=== PATIENT | male | born 1955 | race Caucasian/White ===

== ENCOUNTER 2017-08-02 18:19 | Emergency (ER) | payer MEDICARE ==
[~2017-08-02] VITALS: Ht 182.9 cm; Wt 79.4 kg
[~2017-08-02 18:19] MED LIST: BENZ1TAB5 PO; BUPR100T6 PO; DIAZ10TA4 PO; ESCITALOPRAM OX20 MG PO; LISI1TAB7 PO; LORA0.5T96 PO; LOVA20TA2 PO; MELO7.5T5 PO; NATE120T2 PO; PRAM0.255 PO; PRIM50TA24 PO; Potassium Chloride PO; RISP3TAB PO; RISP4TAB2 PO; [UNRECOGNIZED DRUG - OTHER]; [UNRECOGNIZED DRUG - OTHER]
--- NOTE | 2017-08-02 19:14 | EKG ---
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
[2017-08-02 19:18] LABS: BASO # 0.1 x10^3/uL (0.0-0.2); BASO % 1 % (0-3); EOS # 0.1 x10^3/uL (0.0-0.7); EOS % 1 % (0-3); HEMATOCRIT 42.5 % (39.0-53.0); HEMOGLOBIN 15.2 g/dL (13.0-17.5); LYMPH # 1.8 x10^3/uL (1.0-4.8); LYMPH % 23 % (24-48); MEAN CORPUSCULAR HEMOGLOBIN 34 pg (25-35); MEAN CORPUSCULAR HGB CONC 36 g/dL (31-37); MEAN CORPUSCULAR VOLUME 95 fL (79-100); MONO # 0.4 x10^3/uL (0.0-1.1); MONO % 5 % (0-9); NEUT # 5.5 x10^3uL (1.8-7.7); NEUT % 71 % (31-73); PLATELET COUNT 181 x10^3/uL (140-400); RED BLOOD COUNT 4.49 x10^6/uL (4.30-5.70); RED CELL DISTRIBUTION WIDTH 12.9 % (11.5-14.5); WHITE BLOOD COUNT 7.8 x10^3/uL (4.0-11.0)
[2017-08-02 19:31] LABS: ALBUMIN 4.2 g/dL (3.4-5.0); ALBUMIN/GLOBULIN RATIO 1.1 (1.0-1.7); CALCIUM 10.1 mg/dL (8.5-10.1); CREATININE 1.3 mg/dL (0.7-1.3); GFR 55.9; TOTAL BILIRUBIN 0.4 mg/dL (0.2-1.0)
[2017-08-02 19:57] LABS: AMPHETAMINE/METHAMPHETAMINE NEG (NEG); BARBITURATES NEG (NEG); BENZODIAZEPINES NEG (NEG); CANNABINOIDS NEG (NEG); COCAINE NEG (NEG); METHADONE NEG (NEG); OPIATES NEG (NEG); PHENCYCLIDINE NEG (NEG)
[2017-08-02 19:58] VITALS: BP 140/93
--- NOTE | 2017-08-03 05:39 | ED.ADGEN ---
Past History Past Medical History: Bipolar, Diabetes, GERD, Hypertension, Schizophrenia Past Surgical History: Other Alcohol Use: Occasionally Additional Alcohol Information: DRANK A 5TH/DAY UP TO LAST YEAR Drug Use: None Adult General Chief Complaint Chief Complaint hallucinations, delusions HPI HPI Patient is a 62-year-old male with history of bipolar, alcoholism who presents with hallucinations and delusions prior to ED arrival. states he is feeling paranoid and thought report TM. Reports verbal confrontation with family member at [facility]. States delusions or hallucinations of currently resolved. No HI, SI symptoms currently. Denies drugs and alcohol. Compliant with medications [] Review of Systems Review of Systems ROS as per HPI [] Allergies Allergies Allergies Coded Allergies Type Severity Reaction Last Updated Verified No Known Drug Allergies 05/09/14 No Physical Exam Physical Exam Constitutional: Well developed, well nourished, no acute distress, non-toxic appearance. [] HENT: Normocephalic, atraumatic, bilateral external ears normal, oropharynx moist, no oral exudates, nose normal. [] Eyes: PERRLA, EOMI, conjunctiva normal, no discharge. [] Neck: Normal range of motion, no tenderness, supple, no stridor. [] Cardiovascular:Heart rate regular rhythm, no murmur [] Lungs & Thorax: Bilateral breath sounds clear to auscultation [] Abdomen: Bowel sounds normal, soft, no tenderness, no masses, no pulsatile masses. [] Skin: Warm, dry, no erythema, no rash. [] Back: No tenderness, no CVA tenderness. [] Extremities: No tenderness, no cyanosis, no clubbing, ROM intact, no edema. [] Neurologic: Alert and oriented X 3, no HI, SI. No current hallucinations or delusions [] Psychologic: Affect normal, judgement normal, mood normal. [] Current Patient Data Vital Signs Vital Signs Date Time Temp Pulse Resp B/P (MAP) Pulse Ox O2 Delivery O2 Flow Rate FiO2 08/02/17 19:58 97 140/93 (109) 08/02/17 19:28 94 08/02/17 18:19 98.2 08/02/17 18:19 18 Room Air Lab Results Laboratory Tests Test 08/02/17 18:55 08/02/17 19:23 White Blood Count 7.8 x10^3/uL (4.0-11.0) Red Blood Count 4.49 x10^6/uL (4.30-5.70) Hemoglobin 15.2 g/dL (13.0-17.5) Hematocrit 42.5 % (39.0-53.0) Mean Corpuscular Volume 95 fL (79-100) Mean Corpuscular Hemoglobin 34 pg (25-35) Mean Corpuscular Hemoglobin Concent 36 g/dL (31-37) Red Cell Distribution Width 12.9 % (11.5-14.5) Platelet Count 181 x10^3/uL (140-400) Neutrophils (%) (Auto) 71 % (31-73) Lymphocytes (%) (Auto) 23 % (24-48) L Monocytes (%) (Auto) 5 % (0-9) Eosinophils (%) (Auto) 1 % (0-3) Basophils (%) (Auto) 1 % (0-3) Neutrophils # (Auto) 5.5 x10^3uL (1.8-7.7) Lymphocytes # (Auto) 1.8 x10^3/uL (1.0-4.8) Monocytes # (Auto) 0.4 x10^3/uL (0.0-1.1) Eosinophils # (Auto) 0.1 x10^3/uL (0.0-0.7) Basophils # (Auto) 0.1 x10^3/uL (0.0-0.2) Sodium Level 139 mmol/L (136-145) Potassium Level 4.0 mmol/L (3.5-5.1) Chloride Level 104 mmol/L (98-107) Carbon Dioxide Level 25 mmol/L (21-32) Anion Gap 10 (6-14) Blood Urea Nitrogen 14 mg/dL (8-26) Creatinine 1.3 mg/dL (0.7-1.3) Estimated GFR (Cockcroft-Gault) 55.9 BUN/Creatinine Ratio 11 (6-20) Glucose Level 98 mg/dL (70-99) Calcium Level 10.1 mg/dL (8.5-10.1) Total Bilirubin 0.4 mg/dL (0.2-1.0) Aspartate Amino Transferase (AST) 18 U/L (15-37) Alanine Aminotransferase (ALT) 19 U/L (16-63) Alkaline Phosphatase 85 U/L (46-116) Total Protein 8.0 g/dL (6.4-8.2) Albumin 4.2 g/dL (3.4-5.0) Albumin/Globulin Ratio 1.1 (1.0-1.7) Ethyl Alcohol Level < 10 mg/dL (0-10) Urine Opiates Screen Neg (NEG) Urine Methadone Screen Neg (NEG) Urine Barbiturates Neg (NEG) Urine Phencyclidine Screen Neg (NEG) Urine Amphetamine/Methamphetamine Neg (NEG) Urine Benzodiazepines Screen Neg (NEG) Urine Cocaine Screen Neg (NEG) Urine Cannabinoids Screen Neg (NEG) Urine Ethyl Alcohol Neg (NEG) EKG EKG [EKG: reviewed] Radiology/Procedures Radiology/Procedures [] Course & Med Decision Making Course & Med Decision Making Pertinent Labs and Imaging studies reviewed. (See chart for details) [ follow-up with [facility]] Final Impression Final Impression [1. Medical screening exam] Problems: Dragon Disclaimer Dragon Disclaimer This electronic medical record was generated, in whole or in part, using a voice recognition dictation system. HERBERT WILSON DO Aug 03, 2017 05:39
== END 2017-08-02 22:10 | disposition home or self-care (01) ==
LOC: ER 18:19
DX: Z00.00 Encounter for general adult medical examination without abnormal findings (principal); I10 Essential (primary) hypertension; K21.9 Gastro-esophageal reflux disease without esophagitis; F20.9 Schizophrenia, unspecified; E11.9 Type 2 diabetes mellitus without complications; F32.9 Major depressive disorder, single episode, unspecified
CPT/HCPCS: 36415; 80053; 80307; 85025; 93005; 99285; G0480; G0479

== ENCOUNTER 2017-08-16 06:29 | Inpatient (IN) | payer MEDICARE ==
[~2017-08-16] VITALS: Ht 182.9 cm; Wt 84.1 kg
--- NOTE | 2017-08-16 06:32 | ED.ADGEN ---
Past History Past Medical History: Bipolar, Diabetes, GERD, Hypertension, Schizophrenia Past Surgical History: Other Alcohol Use: Occasionally Drug Use: None Adult General Chief Complaint Chief Complaint Stroke symptoms [facility] HPI Patient is a 62 year old male who presents with stroke like symptoms. He states he woke up at 4 AM and around 5:30 AM had numbness in his whole right side of his body, tightness in his right side of his neck and slurring of his speech. He denies any headache with these symptoms. He states these lasted 25 minutes and resolved except for the tightness in the right side of his neck. He states now he has this tingling sensation throughout his entire body. He denies fevers chills nausea or vomiting. He did drink 8 beers yesterday. He states he drinks twice a month. He also states he smokes cigarettes daily. He states he's compliant with his schizophrenia meds however he has ran out of his blood pressure medicines about a week ago. He states he's had 2 previous "mini strokes ". He also states his heart been skipping beats. He states he's been on aspirin daily and sometimes takes up to 3 aspirins a day based on his heart skipping beats. He also states he's had bright red blood in his stools for the last 6 months. He denies any lightheadedness or dizziness. He also complains of urinary hesitancy and "dribbling" when he tries to urinate this been going on for several months in addition. Review of Systems Review of Systems Constitutional: Denies fever or chills [] Eyes: Denies change in visual acuity, redness, or eye pain [] HENT: Denies nasal congestion or sore throat [] Respiratory: Denies cough or shortness of breath [] Cardiovascular: No additional information not addressed in HPI [] GI: Denies abdominal pain, nausea, vomiting, bloody stools or diarrhea [] : Denies dysuria or hematuria [] Musculoskeletal: Denies back pain or joint pain [] Integument: Denies rash or skin lesions [] Neurologic: Denies headache, focal weakness or sensory changes [] Endocrine: Denies polyuria or polydipsia [] Current Medications Current Medications Current Medications Medications (Trade) Dose Ordered Sig/Jameson Start Time Stop Time Status Last Admin Dose Admin Aspirin (Aspirin Enteric Coated) 325 mg 1X ONCE 08/16/17 07:30 08/16/17 07:32 DC 08/16/17 08:08 325 MG Ondansetron HCl (Zofran) 4 mg PRN Q4HRS PRN 08/16/17 09:30 08/17/17 09:29 UNV Allergies Allergies Allergies Coded Allergies Type Severity Reaction Last Updated Verified No Known Drug Allergies 05/09/14 No Physical Exam Physical Exam Constitutional: Well developed, well nourished, no acute distress, non-toxic appearance. [] HENT: Normocephalic, atraumatic, bilateral external ears normal, oropharynx moist, no oral exudates, nose normal. [] Eyes: PERRLA, EOMI, conjunctiva normal, no discharge. [] Neck: Normal range of motion, no tenderness, supple, no stridor. [] Cardiovascular:Heart rate regular rhythm, no murmur [] Lungs & Thorax: Bilateral breath sounds clear to auscultation [] Abdomen: Bowel sounds normal, soft, no tenderness, no masses, no pulsatile masses. [] Skin: Warm, dry, no erythema, no rash. [] Back: No tenderness, no CVA tenderness. [] Extremities: No tenderness, no cyanosis, no clubbing, ROM intact, no edema. [] Neurologic: Alert and oriented X 3, normal motor function, normal sensory function, no focal deficits noted. [] Psychologic: Affect normal, judgement normal, mood normal. [] Current Patient Data Vital Signs Vital Signs Date Time Temp Pulse Resp B/P (MAP) Pulse Ox O2 Delivery O2 Flow Rate FiO2 08/16/17 08:09 100 20 106/67 (80) 95 Room Air 08/16/17 06:29 98.2 Lab Results Laboratory Tests Test 08/16/17 06:45 08/16/17 07:14 White Blood Count 5.6 x10^3/uL (4.0-11.0) Red Blood Count 4.22 x10^6/uL (4.30-5.70) L Hemoglobin 14.2 g/dL (13.0-17.5) Hematocrit 39.9 % (39.0-53.0) Mean Corpuscular Volume 95 fL (79-100) Mean Corpuscular Hemoglobin 34 pg (25-35) Mean Corpuscular Hemoglobin Concent 36 g/dL (31-37) Red Cell Distribution Width 13.1 % (11.5-14.5) Platelet Count 150 x10^3/uL (140-400) Neutrophils (%) (Auto) 55 % (31-73) Lymphocytes (%) (Auto) 34 % (24-48) Monocytes (%) (Auto) 8 % (0-9) Eosinophils (%) (Auto) 3 % (0-3) Basophils (%) (Auto) 1 % (0-3) Neutrophils # (Auto) 3.1 x10^3uL (1.8-7.7) Lymphocytes # (Auto) 1.9 x10^3/uL (1.0-4.8) Monocytes # (Auto) 0.4 x10^3/uL (0.0-1.1) Eosinophils # (Auto) 0.2 x10^3/uL (0.0-0.7) Basophils # (Auto) 0.0 x10^3/uL (0.0-0.2) Prothrombin Time 9.8 SEC (9.4-11.4) Prothrombin Time INR 1.0 (0.9-1.1) PTT 24 SEC (23-33) Sodium Level 141 mmol/L (136-145) Potassium Level 3.7 mmol/L (3.5-5.1) Chloride Level 104 mmol/L (98-107) Carbon Dioxide Level 26 mmol/L (21-32) Anion Gap 11 (6-14) Blood Urea Nitrogen 10 mg/dL (8-26) Creatinine 1.1 mg/dL (0.7-1.3) Estimated GFR (Cockcroft-Gault) 67.8 BUN/Creatinine Ratio 9 (6-20) Glucose Level 98 mg/dL (70-99) Calcium Level 9.3 mg/dL (8.5-10.1) Total Bilirubin 0.4 mg/dL (0.2-1.0) Aspartate Amino Transferase (AST) 12 U/L (15-37) L Alanine Aminotransferase (ALT) 18 U/L (16-63) Alkaline Phosphatase 74 U/L (46-116) Creatine Kinase 122 U/L (39-308) Creatine Kinase MB (Mass) < 0.5 ng/mL (0.0-3.6) Creatine Kinase MB Relative Index 0.4 % (0-4) Troponin I Quantitative < 0.017 ng/mL (0-0.055) Total Protein 7.3 g/dL (6.4-8.2) Albumin 3.9 g/dL (3.4-5.0) Albumin/Globulin Ratio 1.1 (1.0-1.7) Salicylates Level 4.9 mg/dL (2.8-20.0) Salicylate Last Dose Date 08/16/2017 Salicylate Last Dose Time 0645 Ethyl Alcohol Level < 10 mg/dL (0-10) Urine Collection Type Unknown Urine Color Yellow Urine Clarity Clear Urine pH 7.0 Urine Specific [place] 1.015 Urine Protein Neg (NEG-TRACE) Urine Glucose (UA) Neg mg/dL (NEG) Urine Ketones (Stick) Neg mg/dL (NEG) Urine Blood Neg (NEG) Urine Nitrite Neg (NEG) Urine Bilirubin Neg (NEG) Urine Urobilinogen Dipstick 0.2 mg/dL (0.2 mg/dL) Urine Leukocyte Esterase Neg (NEG) Urine RBC 0 /HPF (0-2) Urine WBC 0 /HPF (0-4) Urine Squamous Epithelial Cells None /LPF Urine Bacteria 0 /HPF (0-FEW) Urine Opiates Screen Neg (NEG) Urine Methadone Screen Neg (NEG) Urine Barbiturates Neg (NEG) Urine Phencyclidine Screen Neg (NEG) Urine Amphetamine/Methamphetamine Neg (NEG) Urine Benzodiazepines Screen Neg (NEG) Urine Cocaine Screen Neg (NEG) Urine Cannabinoids Screen Neg (NEG) Urine Ethyl Alcohol Neg (NEG) EKG EKG EKG shows sinus rhythm with rate of [address] elevations or concerning T-wave inversions, normal axis, QTC 467 ms, as interpreted by me. Radiology/Procedures Radiology/Procedures [address] [address] IMAGING REPORT Signed PATIENT: AYO ALBERTO ACCOUNT: [id number] : 1955 LOCATION: ER AGE: 62 SEX: M EXAM STATUS: REG ER ORD. PHYSICIAN: YONATAN WADE MD REASON: slurred speech - resolved PROCEDURE: CT HEAD WO CONTRAST EXAM: CT head without contrast. HISTORY: Slurred speech. TECHNIQUE: Computed tomography of the head was performed without intravenous contrast. COMPARISON: 04/22/2016. FINDINGS: There is no intracranial hemorrhage. Mild hypoattenuation within the periventricular white matter indicates mild chronic small vessel ischemic change. The ventricles are normal in size and position. The visualized paranasal sinuses appear clear. The orbits are unremarkable. The temporal bones are unremarkable. The calvarium reveals no suspicious lesions. IMPRESSION: 1. No acute intracranial findings. Mild chronic small vessel ischemic white matter change. *One or more of the following individualized dose reduction techniques were utilized for this examination: 1. Automated exposure control. 2. Adjustment of the mA and/or kV according to patient size. 3. Use of iterative reconstruction technique. DICTATED AND SIGNED BY: CORINA LOYOLA MD DATE: 08/16/17733 CC: ADDISON CAMPA MD; YONATAN WADE MD ~ [place] [address] IMAGING REPORT Signed PATIENT: AYO ALBERTO ACCOUNT: [id number] : 1955 LOCATION: ER AGE: 62 SEX: M EXAM STATUS: REG ER ORD. PHYSICIAN: YONATAN WADE MD REASON: palpatations PROCEDURE: CHEST AP ONLY EXAM: Chest one view. HISTORY: Chest pain and palpitations, stroke symptoms. COMPARISON: None. FINDINGS: A frontal view of the chest is obtained. There is mild rotation to the left. Hyperinflation is consistent with chronic obstructive pulmonary disease. There is a mild airspace opacity in the left base which may be from superimposition of shadows. There is no pneumothorax or pleural effusion. The heart is not enlarged. IMPRESSION: 1. Chronic obstructive pulmonary disease. 2. An opacity in the left base may represent a mild infiltrate or superimposed shadows. Correlate with older studies to assess chronicity. DICTATED AND SIGNED BY: CORINA LOYOLA MD DATE: 08/16/17736 CC: ADDISON CAMPA MD; YONATAN WADE MD ~ Course & Med Decision Making Course & Med Decision Making Pertinent Labs and Imaging studies reviewed. (See chart for details) 720 patient states all his symptoms have resolved and he feels back to his baseline. He does have a history of TIAs in the past and takes daily aspirin. His alcohol level is less than 10 in addition to his aspirin level was non- toxic received a full dose aspirin. I tried to get a hold of Dr. Brown by calling his cell phone several times in addition to his office of which they cannot get a hold of him. Therefore after waiting approximately an hour we've admitted the patient to Dr. Thorpe. Hematocrit once a fasting lipid profile, carotid Dopplers, echocardiogram and neurology consultation. These have been added to his interim orders. Patient's in stable condition this time being admitted to the hospitalist. Final Impression Final Impression Dysarthria-resolved Hypertension Schizoaffective disorder Problems: Dragon Disclaimer Dragon Disclaimer This electronic medical record was generated, in whole or in part, using a voice recognition dictation system. Departure Departure: Impression: Primary Impression: TIA (transient ischemic attack) Disposition: ADMITTED INPATIENT Admitting Physician: Cathy Thorpe Condition: STABLE YONATAN WADE MD Aug 16, 2017 06:32
[2017-08-16 07:08] LABS: BASO % 1 % (0-3); EOS # 0.2 x10^3/uL (0.0-0.7); EOS % 3 % (0-3); HEMATOCRIT 39.9 % (39.0-53.0); HEMOGLOBIN 14.2 g/dL (13.0-17.5); LYMPH # 1.9 x10^3/uL (1.0-4.8); LYMPH % 34 % (24-48); MEAN CORPUSCULAR HEMOGLOBIN 34 pg (25-35); MEAN CORPUSCULAR HGB CONC 36 g/dL (31-37); MEAN CORPUSCULAR VOLUME 95 fL (79-100); MONO # 0.4 x10^3/uL (0.0-1.1); MONO % 8 % (0-9); NEUT # 3.1 x10^3uL (1.8-7.7); NEUT % 55 % (31-73); PLATELET COUNT 150 x10^3/uL (140-400); RED BLOOD COUNT 4.22 x10^6/uL (4.30-5.70); RED CELL DISTRIBUTION WIDTH 13.1 % (11.5-14.5); WHITE BLOOD COUNT 5.6 x10^3/uL (4.0-11.0)
[2017-08-16 07:20] LABS: ETHANOL < 10 mg/dL (0-10); SALIC 4.9 mg/dL (2.8-20.0)
[2017-08-16 07:23] LABS: ALBUMIN 3.9 g/dL (3.4-5.0); ALBUMIN/GLOBULIN RATIO 1.1 (1.0-1.7); CALCIUM 9.3 mg/dL (8.5-10.1); CREATININE 1.1 mg/dL (0.7-1.3); GFR 67.8; POTASSIUM 3.7 mmol/L (3.5-5.1); TOTAL BILIRUBIN 0.4 mg/dL (0.2-1.0); TOTAL PROTEIN 7.3 g/dL (6.4-8.2)
[2017-08-16] MEDS ORDERED: ASPIRIN ENTERIC COATED 325 MG TABLET.DR. PO ONE (07:30)
[2017-08-16 07:31] LABS: CREATINE KINASE 122 U/L (39-308)
[2017-08-16 07:34] LABS: BARBITURATES NEG (NEG); BENZODIAZEPINES NEG (NEG); CANNABINOIDS NEG (NEG); COCAINE NEG (NEG); METHADONE NEG (NEG); OPIATES NEG (NEG); PHENCYCLIDINE NEG (NEG)
[2017-08-16 07:35] LABS: AMPHETAMINE/METHAMPHETAMINE NEG (NEG)
--- NOTE | 2017-08-16 07:39 | RAD ---
EXAM: CT head without contrast. HISTORY: Slurred speech. TECHNIQUE: Computed tomography of the head was performed without intravenous contrast. COMPARISON: 04/22/2016. FINDINGS: There is no intracranial hemorrhage. Mild hypoattenuation within the periventricular white matter indicates mild chronic small vessel ischemic change. The ventricles are normal in size and position. The visualized paranasal sinuses appear clear. The orbits are unremarkable. The temporal bones are unremarkable. The calvarium reveals no suspicious lesions. IMPRESSION: 1. No acute intracranial findings. Mild chronic small vessel ischemic white matter change. *One or more of the following individualized dose reduction techniques were utilized for this examination: 1. Automated exposure control. 2. Adjustment of the mA and/or kV according to patient size. 3. Use of iterative reconstruction technique.
--- NOTE | 2017-08-16 07:42 | RAD ---
EXAM: Chest one view. HISTORY: Chest pain and palpitations, stroke symptoms. COMPARISON: None. FINDINGS: A frontal view of the chest is obtained. There is mild rotation to the left. Hyperinflation is consistent with chronic obstructive pulmonary disease. There is a mild airspace opacity in the left base which may be from superimposition of shadows. There is no pneumothorax or pleural effusion. The heart is not enlarged. IMPRESSION: 1. Chronic obstructive pulmonary disease. 2. An opacity in the left base may represent a mild infiltrate or superimposed shadows. Correlate with older studies to assess chronicity.
[2017-08-16 07:48] LABS: BILIRUBIN,URINE NEG (NEG); CLARITY,URINE CLEAR; COLOR,URINE YELLOW; GLUCOSE,URINE NEG (NEG)
[2017-08-16 07:49] LABS: BACTERIA,URINE 0 /HPF (0-FEW); NITRITE,URINE NEG (NEG); RBC,URINE 0 /HPF (0-2); UROBILINOGEN,URINE 0.2 mg/dL (0.2 mg/dL); WBC,URINE 0 /HPF (0-4)
[2017-08-16] MEDS ORDERED: ONDANSETRON PF 4 MG/2 ML VIAL. IV PRN (09:30)
[2017-08-16] MEDS ORDERED: ACETAMINOPHEN 500 MG TABLET PO ONE (10:30)
--- NOTE | 2017-08-16 10:40 | RAD ---
Exam performed: Carotid Doppler. Clinical indication: Transient ischemic attacks Comparison: None available Technique: Grayscale, color Doppler 2-D, spectral waveform analysis of the carotid system was performed and images are all obtained. Findings: There is mild to moderate atherosclerotic calcification within both carotid bulbs extending into the internal carotid artery bilaterally. Doppler interrogation reveals velocities as follows . Peak systolic velocity within the right common carotid artery ranges from 91 cm/sec whereas on the left ranges from 117 cm/sec . The peak systolic velocity within the right ICA ranges from 127 to164 cm/sec whereas on the left ranges from 98-115 cm/sec. The end-diastolic velocity in the right internal carotid artery is between 55-66. The end-diastolic velocity in the left internal carotid artery is between 40-47. The ICA to CCA ratio on the right ranges from 1.8whereas on the left ranges from 1.0. There is antegrade flow in both vertebral arteries. Impression: 1.Mild to moderate plaquing involving both carotid systems, with 50-69% stenosis on the right and about 50% stenosis on the left. Note: Stenosis calculations for CT, MR and conventional angiography are based upon determination of the distal ICA diameter in accordance with the NASCET methodology. Stenosis calculations for doppler studies are derived from validated velocity criteria which are known to correlate with NASCET methodology of determining stenosis.
[2017-08-16 11:14] VITALS: BP 157/83
[2017-08-16] MEDS ORDERED: QUET400T4 PO (11:28)
[2017-08-16] MEDS ORDERED: QUET50TA5 PO (11:28)
[2017-08-16] MEDS ORDERED: ASPI325T8 PO (12:58)
--- NOTE | 2017-08-16 13:53 | HP ---
ADMIT DATE: 08/16/2017 HISTORY OF PRESENT ILLNESS: The patient is a 62-year-old male patient who came to the Emergency Room. He apparently woke up at 4 a.m. and around 5:30 a.m., he had numbness in his whole right side of his body, tightness in his right side of his neck and slurring of his speech. He denied any headache with the symptoms. He stated that these symptoms lasted about 25 minutes and resolved except that tightness in his right side of his neck. He also has tingling sensation throughout his right side. Denied any fever, chills, nausea, vomiting. Did drink 8 beers yesterday. He stated he thinks he drinks 6 packs of beer twice a month. He stated that he has also retrosternal chest pain that lasted about half an hour associated with nausea, diaphoresis, and shortness of breath, but no vomiting. He took a regular aspirin and the pain has subsided spontaneously. He was evaluated in the Emergency Room, was admitted for further evaluation and to consult Dr. Sumner and Cardiology team. PAST MEDICAL HISTORY: According to him is significant for hypertension, hyperlipidemia, type 2 diabetes mellitus, depression, TIA. He apparently was admitted to [facility] for 2 previous episodes of TIAs. He also complained of symptoms suggestive of benign prostatic hypertrophy. He also said that he continued to have some blood in his stool over the last 6 months. He stated that he has had a colonoscopy done about 2-3 years ago and it was unremarkable. He has also esophagogastroduodenoscopy done about 5 years ago that was unremarkable. PAST SURGICAL HISTORY: Significant for EGD and colonoscopy. He has also right fibular fracture treated with casting. ALLERGIES: He is allergic to ____. MEDICATIONS: He is currently on escitalopram oxalate 20 mg at bedtime. He is on quetiapine fumarate 600 mg at bedtime and quetiapine fumarate 50 mg twice a day. He stated that he is also on medication for his diabetes, hypertension, hyperlipidemia that had stopped taking them and that he gets them from [facility]. FAMILY HISTORY: He has 1 older brother that apparently healthy, one younger sister has hypertension. His father at the age of 87 because of prostate cancer. Mother is alive at the age of 55. She is known to have hypertension and right-sided hemiplegia, aphasia. He lives with his sister. SOCIAL HISTORY: He is single, has no children, continue to smoke a pack a day and drinks only 6 pack twice a month. Does not use any drugs. He is now on disability for mental illness for depression and schizophrenia. REVIEW OF SYSTEMS: The patient denied any blurring of vision, cataract, glaucoma, or macular degeneration. Denied any earache, tinnitus, or sensorineural deafness. Denied any nosebleeds, stuffy nose, or postnasal drip. Denied any sore throat, sore tongue, toothache, hoarseness of voice, or difficulty swallowing. Denied any nausea, vomiting. Did complain of nausea, but no vomiting. Did complain of constipation, but no diarrhea. He did complain of poor stream and postvoid dribbling and also nocturia. Denied any dysuria, frequency, or hematuria. Did complain of chest pain and shortness of breath. Denied any orthopnea or paroxysmal nocturnal dyspnea. Denied any cough, phlegm, or hemoptysis. Denied any chills, rigors, or fever. Denied any dizziness, lightheadedness, or vertigo. PHYSICAL EXAMINATION: GENERAL: On arrival to the Emergency Room, he looked somewhat pale, but no jaundice, cyanosis, or thyromegaly. No jugular venous distention. No limb edema. VITAL SIGNS: His heart rate was 99, blood pressure was 141/91, temperature was 98.2, respiratory rate was 18, and oxygen saturation was 98% on room air. HEAD, EYES, EARS, NOSE, AND THROAT: Normocephalic, atraumatic. NECK: Supple. HEART: Showed normal first and second heart sounds with no gallop, rub, or murmur. CHEST: Clear to auscultation. No crepitation or rhonchi. ABDOMEN: Distended, soft, nontender. NEUROLOGIC: He is awake, alert, responding appropriately. All his cranial nerves are intact. EXTREMITIES: He moves extremities without difficulty. He definitely has no evidence of cerebellar ataxia. There is no dysdiadochokinesis, [id number] test was normal. I did not check his Romberg's test. LABORATORY DATA: While in the Emergency Room, he has lab work done, which showed a white cell count 5,600, hemoglobin 14, hematocrit 40, MCV 95, and platelet count ____ with normal manual differential. His chemistry showed a serum sodium of 141, potassium 3.7, chloride 104, bicarbonate 26, anion gap of 11, BUN 10, creatinine 1.1, estimated GFR was 68 mL per minute. His glucose was 98, calcium was 9.3. Total bilirubin, AST, ALT, alkaline phosphatase were normal. His first set of cardiac enzymes showed troponin to be less than 0.017. Total protein was 7.3, albumin was 3.9. His prothrombin time was 9.8, INR of 1, aPTT was 24. Urinalysis was essentially unremarkable. Urine toxic screen was essentially negative. The patient has had a CT scan of the head, which basically showed that there is no intracranial hemorrhage, mild hypoattenuation within the periventricular white matter indicates mild chronic small vessel ischemic changes. The ventricles are normal in size and position. The visualized paranasal sinuses appear clear. The orbits are unremarkable. The temporal bones are unremarkable. The calvarium reveals no suspicious lesions. He has had a chest x-ray, which showed that he has chronic obstructive pulmonary disease and opacity in the left base may represent a mild infiltrate or superimposed shadowing. He has had bilateral carotid Doppler, which showed that he has mild to moderate plaquing involving both carotid systems with 50%-60% stenosis on the right and about 50% stenosis in the left. PLAN: We have arranged for him to have an echocardiogram. We will consult Dr. Sumner and also the Cardiology team. We will contact [facility] to get list of medication and arrange for him to have 2 more sets of cardiac enzyme and fasting lipid profile tomorrow, Dr. Barnes will take over care tomorrow. ODALIS ORELLANA MD DR: MCKENZIE/gale JOB#: [id number] / [id number]
[2017-08-16] MEDS: QUEtiapine 50 MG TABLET. PO SCH (14:37)
[2017-08-16] MEDS: NICOTINE 21MG PATCH. TD SCH (14:38)
[2017-08-16 14:40] VITALS: BP 131/94
--- NOTE | 2017-08-16 16:44 | PDOC2 ---
MELI CAMP WARDROBE ATTENDANT 08/16/17 1644: CONSULT Date of Admission DATE: 08/16/17 TIME: 16:36 Reason for Consult: chest pain Problem List Problems Medical Problems: (1) TIA (transient ischemic attack) Status: Acute History of Present Illness Mr Beasley is a 62 year old male who presented with stroke like symptoms. He complains of right sided weakness lasting about 25 minutes. He also complained of midsternal pressure with associated dyspnea and diaphoresis. He reports this occurs off and on, mostly at rest and is associated with palpitations. He reports a stress test at last year after which he was recommended to have a cardiac cath. He says he wanted to go through his PCP so declined the cath at that time. Past Medical History hypertension, hyperlipidemia, type 2 diabetes mellitus, depression, 2 prior TIAs. benign prostatic hypertrophy right fibular fracture Past Surgical History EGD and colonoscopy Family History sister has hypertension, father with prostate cancer. Mother has hypertension, right-sided hemiplegia, aphasia. Social History 1 ppd smoker, drinks 6 pack twice monthly, denies illicit drugs and is on disability for depression and schizophrenia. Current Medications Current Medications Aspirin (Aspirin Enteric Coated) 325 mg 1X ONCE PO Last administered on 08:08; Start 08/16/17 at 07:30; Stop 08/16/17 at 07:32; Status DC Ondansetron HCl (Zofran) 4 mg PRN Q4HRS PRN IV NAUSEA/VOMITING; Start 08/16/17 at 09:30; Stop 08/17/17 at 09:29 Acetaminophen (Tylenol) 1,000 mg 1X ONCE PO Last administered on 08/16/17 10: 30; Start 08/16/17 at 10:30; Stop 08/16/17 at 10:31; Status DC Quetiapine Fumarate (SEROquel) 50 mg BID92 PO Last administered on 08/16/17 14 :37; Start 08/16/17 at 14:00 Citalopram Hydrobromide (CeleXA) 40 mg QHS PO ; Start 08/16/17 at 21:00 Quetiapine Fumarate (SEROquel) 600 mg QHS PO ; Start 08/16/17 at 21:00 Nicotine (Nicoderm Cq 21mg) 1 patch DAILY TD Last administered on 9/25/17at 14: 38; Start 08/16/17 at 13:00 Influenza Virus Vaccine Quadrival (Fluarix Quad [id number] Syringe) 0.5 ml ONCE ONCE VAX IM ; Start 08/16/17 at 21:00; Stop 08/16/17 at 21:01 Pneumococcal Polyvalent Vaccine (Pneumovax 23) 0.5 ml ONCE ONCE VAX IM ; Start 08/16/17 at 21:00; Stop 08/16/17 at 21:01 Aspirin (Markos Aspirin) 325 mg DAILYWBKFT PO ; Start 08/17/17 at 08:00 Enoxaparin Sodium (Lovenox) 40 mg HS SQ ; Start 08/16/17 at 21:00 Active Scripts Active Reported Aspirin 325 Mg Tablet 1 Tab PO BID PRN Seroquel (Quetiapine Fumarate) 50 Mg Tablet 50 Mg PO BID92 Seroquel (Quetiapine Fumarate) 400 Mg Tablet 600 Mg PO HS Escitalopram Oxalate 20 Mg Tablet 20 Mg PO HS Allergies: Coded Allergies: No Known Drug Allergies (Unverified , 05/09/14) Review of System as per HPI General: Alert, Oriented X3, Cooperative, No acute distress HEENT: Atraumatic, EOMI, Mucous membr. moist/pink Heart: Regular rate, Normal S1, Normal S2, No murmurs Abdomen: Normal bowel sounds, Soft, No tenderness Extremities: No cyanosis, Normal pulses Neuro: Normal speech, Strength at 5/5 X4 ext Psych/Mental Status: Mood NL VITALS Vital Signs Date Time Temp Pulse Resp B/P (MAP) Pulse Ox O2 Delivery O2 Flow Rate FiO2 08/16/17 14:40 97.5 87 20 131/94 (106) 95 Room Air Labs Laboratory Tests Test 08/16/17 06:45 08/16/17 07:14 08/16/17 14:20 White Blood Count 5.6 x10^3/uL (4.0-11.0) Red Blood Count 4.22 x10^6/uL (4.30-5.70) Hemoglobin 14.2 g/dL (13.0-17.5) Hematocrit 39.9 % (39.0-53.0) Mean Corpuscular Volume 95 fL (79-100) Mean Corpuscular Hemoglobin 34 pg (25-35) Mean Corpuscular Hemoglobin Concent 36 g/dL (31-37) Red Cell Distribution Width 13.1 % (11.5-14.5) Platelet Count 150 x10^3/uL (140-400) Neutrophils (%) (Auto) 55 % (31-73) Lymphocytes (%) (Auto) 34 % (24-48) Monocytes (%) (Auto) 8 % (0-9) Eosinophils (%) (Auto) 3 % (0-3) Basophils (%) (Auto) 1 % (0-3) Neutrophils # (Auto) 3.1 x10^3uL (1.8-7.7) Lymphocytes # (Auto) 1.9 x10^3/uL (1.0-4.8) Monocytes # (Auto) 0.4 x10^3/uL (0.0-1.1) Eosinophils # (Auto) 0.2 x10^3/uL (0.0-0.7) Basophils # (Auto) 0.0 x10^3/uL (0.0-0.2) Prothrombin Time 9.8 SEC (9.4-11.4) Prothromb Time International Ratio 1.0 (0.9-1.1) Activated Partial Thromboplast Time 24 SEC (23-33) Sodium Level 141 mmol/L (136-145) Potassium Level 3.7 mmol/L (3.5-5.1) Chloride Level 104 mmol/L (98-107) Carbon Dioxide Level 26 mmol/L (21-32) Anion Gap 11 (6-14) Blood Urea Nitrogen 10 mg/dL (8-26) Creatinine 1.1 mg/dL (0.7-1.3) Estimated GFR (Cockcroft-Gault) 67.8 BUN/Creatinine Ratio 9 (6-20) Glucose Level 98 mg/dL (70-99) Calcium Level 9.3 mg/dL (8.5-10.1) Total Bilirubin 0.4 mg/dL (0.2-1.0) Aspartate Amino Transf (AST/SGOT) 12 U/L (15-37) Alanine Aminotransferase (ALT/SGPT) 18 U/L (16-63) Alkaline Phosphatase 74 U/L (46-116) Creatine Kinase 122 U/L (39-308) Creatine Kinase MB (Mass) < 0.5 ng/mL (0.0-3.6) Creatine Kinase MB Relative Index 0.4 % (0-4) Troponin I Quantitative < 0.017 ng/mL (0-0.055) < 0.017 ng/mL (0-0.055) Total Protein 7.3 g/dL (6.4-8.2) Albumin 3.9 g/dL (3.4-5.0) Albumin/Globulin Ratio 1.1 (1.0-1.7) Triglycerides Level 76 mg/dL (0-150) Cholesterol Level 179 mg/dL (0-200) LDL Cholesterol, Calculated 113 mg/dL (0-100) VLDL Cholesterol, Calculated 15 mg/dL (0-40) Non-HDL Cholesterol Calculated 128 mg/dL (0-129) HDL Cholesterol 51 mg/dL (40-60) Cholesterol/HDL Ratio 3.0 Salicylates Level 4.9 mg/dL (2.8-20.0) Salicylate Last Dose Date 08/16/2017 Salicylate Last Dose Time 0645 Ethyl Alcohol Level < 10 mg/dL (0-10) Urine Collection Type Unknown Urine Color Yellow Urine Clarity Clear Urine pH 7.0 Urine Specific Hamler 1.015 Urine Protein Neg (NEG-TRACE) Urine Glucose (UA) Neg mg/dL (NEG) Urine Ketones (Stick) Neg mg/dL (NEG) Urine Blood Neg (NEG) Urine Nitrite Neg (NEG) Urine Bilirubin Neg (NEG) Urine Urobilinogen Dipstick 0.2 mg/dL (0.2 mg/dL) Urine Leukocyte Esterase Neg (NEG) Urine RBC 0 /HPF (0-2) Urine WBC 0 /HPF (0-4) Urine Squamous Epithelial Cells None /LPF Urine Bacteria 0 /HPF (0-FEW) Urine Opiates Screen Neg (NEG) Urine Methadone Screen Neg (NEG) Urine Barbiturates Neg (NEG) Urine Phencyclidine Screen Neg (NEG) Urine Amphetamine/Methamphetamine Neg (NEG) Urine Benzodiazepines Screen Neg (NEG) Urine Cocaine Screen Neg (NEG) Urine Cannabinoids Screen Neg (NEG) Urine Ethyl Alcohol Neg (NEG) Images EKG - sinus rhythm, early transition, no acute changes CT head - IMPRESSION: 1. No acute intracranial findings. Mild chronic small vessel ischemic white matter change. Carotid duplex - 1.Mild to moderate plaquing involving both carotid systems, with 50-69% stenosis on the right and about 50% stenosis on the left. CXR - IMPRESSION: 1. Chronic obstructive pulmonary disease. 2. An opacity in the left base may represent a mild infiltrate or superimposed shadows. Correlate with older studies to assess chronicity. Assessment/Plan 1. Chest pain - initial enzymes negative, echo pending, MPI in am 2. TIA - neuro consulted. 3. hypertension - resume home meds 4. hyperlipidemia - check lipids 5. diabetes mellitus per PCP Problems: VENUS MAJOR MD 08/17/17 0846: CONSULT Allergies: Coded Allergies: No Known Drug Allergies (Unverified , 05/09/14) Assessment/Plan Patient seen and examined on 08-16. Chest pain. Pain resolved. Initial troponins normal. No acute EKG changes. Continue present medications. We'll check an echocardiogram for LV function and MPI to rule out coronary artery disease. TIA. Symptoms improved. Continue medications. Rhythm stable. Neurology evaluation. Hypertension. Better controlled on present medications. We'll continue to monitor. Hyperlipidemia. Lipid panel pending. Diabetes mellitus. As per the primary physician. Thank you for allowing us to participate in the care of your patient. Problems: MELI CAMP APRN Aug 16, 2017 16:44 VENUS MAJOR MD Aug 17, 2017 08:46
--- NOTE | 2017-08-16 17:51 | CARD ---
APPROVED REPORT EXAM: Two-dimensional and M-mode echocardiogram with Doppler and color Doppler. Other Information Quality : GoodHR: 84bpm Rhythm : NSR INDICATION CVA/TIA Weakness Echo Enhancing Agent Indication: Rule Out Septal Defect Agent/Amount Used: Agitated Tanqqp0mU 2D DIMENSIONS RVDd2.8 (2.9-3.5cm)Left Atrium(2D)2.7 (1.6-4.0cm) IVSd0.9 (0.7-1.1cm)Aortic Root(2D)2.7 (2.0-3.7cm) LVDd4.3 (3.9-5.9cm)LVOT Diameter2.5 (1.8-2.4cm) PWd0.7 (0.7-1.1cm)LVDs3.1 (2.5-4.0cm) FS (%) 28.5 %SV46.4 ml LVEF(%)55.2 (>50%) Aortic Valve AoV Peak Michael.106.5cm/sAoV VTI23.3cm AO Peak GR.4.5mmHgLVOT Peak Michael.98.0cm/s LVOT VTI 20.33cmAO Mean GR.3mmHg BRYSON (VMAX)4.18xt7MMJ (VTI)4.39cm2 Mitral Valve MV E Almemrfp90.4cm/sMV E Peak Gr.4mmHg MV DECEL [id number] A Rtaqtupq97.2cm/s MV E Mean Gr.2mmHgE/A Ratio0.9 MV A [id number] Pulmonary Valve PV Peak Imyoyebt93.3cm/sPV Peak Grad.3mmHg Pulmonary Vein S1 Kfovoftb31.4cm/sD2 Qclsufvz05.2cm/s LEFT VENTRICLE The left ventricle is normal size. There is normal left ventricular wall thickness. The left ventricu lar systolic function is normal. The Ejection Fraction is 55-60%. There is normal LV segmental wall m otion. Transmitral Doppler flow pattern is Grade I-abnormal relaxation pattern. No left ventricle thr ombus noted on this study. RIGHT VENTRICLE The right ventricle is normal size. There is normal right ventricular wall thickness. The right ventr icular systolic function is normal. ATRIA The left atrium size is normal. The right atrium size is normal. The interatrial septum is intact wit h no evidence for an atrial septal defect or patent foramen ovale as noted on 2-D or Doppler imaging. Injection of bubbles documented no interatrial shunt. AORTIC VALVE The aortic valve is not well seen but appears calcified and opens well. Doppler and Color Flow reveal ed no significant aortic regurgitation. There is no significant aortic valvular stenosis. MITRAL VALVE Mitral annular calcification is mild. The mitral valve leaflets are thickened. There is no evidence o f mitral valve prolapse. There is no mitral valve stenosis. Doppler and Color Flow revealed mild mitr al regurgitation. TRICUSPID VALVE Doppler and Color Flow revealed no tricuspid valve regurgitation noted. There is no pulmonary hyperte nsion. PULMONIC VALVE The pulmonic valve is not well visualized. Doppler and Color Flow revealed no pulmonic valvular regur gitation. There is no pulmonic valvular stenosis by spectral Doppler. GREAT VESSELS The aortic root is normal in size. The ascending aorta is normal in size. The pulmonary artery is nor mal. The IVC was not visualized. PERICARDIAL EFFUSION There is no evidence of significant pericardial effusion. Critical Notification Critical Value: No <Conclusion> The left ventricular systolic function is normal. The Ejection Fraction is 55-60%. There is normal LV segmental wall motion. Transmitral Doppler flow pattern is Grade I-abnormal relaxation pattern. Doppler and Color Flow revealed mild mitral regurgitation. There is no evidence of significant pericardial effusion. Injection of bubbles documented no interatrial shunt.
--- NOTE | 2017-08-16 18:48 | EKG ---
[address] [address] Test Date: 2017-08-16 Test Time: 06:36:06 Pat Name: AYO REMY Department: Room: Gender: M Appointment Coordinator: JALYN : 1955 Requested By: YONATAN WADE Order Number: [id number] Reading MD: Measurements Intervals [place] Rate: 97 P: 36 LA: 166 QRS: 40 QRSD: 86 T: 74 QT: 364 QTc: 467 Interpretive Statements SINUS RHYTHM NO SPECIFIC ECG ABNORMALITIES RI6.01 No previous ECG available for comparison
[2017-08-16 20:04] VITALS: BP 117/79
[2017-08-16] MEDS ORDERED: PNEUMOC CONJ VACC 23-VALENT 0.5 ML VIAL. VAX IM ONE (21:00)
[2017-08-16] MEDS ORDERED: CITALOPRAM 20 MG TABLET. PO SCH (21:00)
[2017-08-16] MEDS ORDERED: QUEtiapine 100 MG TABLET. PO SCH (21:00)
[2017-08-16] MEDS ORDERED: FLU VACC QS2017-18 (36MOS+)/PF 0.5 ML SYRINGE. VAX IM ONE (21:00)
[2017-08-16] MEDS ORDERED: ENOXAPARIN 40 MG/0.4 ML DISP.SYRIN. SQ SCH (21:00)
[2017-08-16 22:47] VITALS: BP 99/67
[2017-08-17 06:14] LABS: BASO % 1 % (0-3); EOS # 0.2 x10^3/uL (0.0-0.7); EOS % 4 % (0-3); HEMATOCRIT 38.7 % (39.0-53.0); HEMOGLOBIN 13.7 g/dL (13.0-17.5); LYMPH % 42 % (24-48); MEAN CORPUSCULAR HEMOGLOBIN 34 pg (25-35); MEAN CORPUSCULAR HGB CONC 35 g/dL (31-37); MEAN CORPUSCULAR VOLUME 95 fL (79-100); MONO # 0.3 x10^3/uL (0.0-1.1); MONO % 7 % (0-9); NEUT # 2.2 x10^3uL (1.8-7.7); NEUT % 47 % (31-73); PLATELET COUNT 159 x10^3/uL (140-400); RED BLOOD COUNT 4.08 x10^6/uL (4.30-5.70); RED CELL DISTRIBUTION WIDTH 13.2 % (11.5-14.5); WHITE BLOOD COUNT 4.8 x10^3/uL (4.0-11.0)
[2017-08-17 06:19] LABS: CALCIUM 9.2 mg/dL (8.5-10.1); CREATININE 1.1 mg/dL (0.7-1.3); GFR 67.8
[2017-08-17 06:22] VITALS: BP 116/70
[2017-08-17] MEDS ORDERED: REGADENOSON 0.4 MG/5 ML DISP.SYRIN. IV ONE (08:00)
[2017-08-17] MEDS ORDERED: ASPIRIN 325 MG TABLET PO SCH (08:00)
[2017-08-17] MEDS ORDERED: APIXABAN 2.5 MG TABLET PO SCH (09:00)
[2017-08-17] MEDS ORDERED: ASPIRIN 81 MG TAB.CHEW PO SCH (09:00)
[2017-08-17 10:19] VITALS: BP 116/78
[2017-08-17] MEDS ORDERED: PNEUMOC CONJ VACC 23-VALENT 0.5 ML VIAL. VAX IM ONE (12:00)
[2017-08-17] MEDS ORDERED: FLU VACC QS2017-18 (36MOS+)/PF 0.5 ML SYRINGE. VAX IM ONE (12:00)
[2017-08-17] MEDS: QUEtiapine 50 MG TABLET. PO SCH ×2 (12:16→12:49)
[2017-08-17] MEDS: NICOTINE 21MG PATCH. TD SCH (12:16)
--- NOTE | 2017-08-17 13:17 | PDOC ---
PROGRESS NOTES Diagnosis Problem Problems Medical Problems: (1) TIA (transient ischemic attack) Status: Acute Assessment Problems Medical Problems: (1) TIA (transient ischemic attack) Status: Acute 1. Chest pain -enzymes negative, echo with normal LV function and wall motion. MPI today. 2. TIA - neuro consulted. 3. hypertension - controlled on home meds 4. hyperlipidemia -lipids pending 5. diabetes mellitus per PCP Problems: Subjective no new complaints Objective Vital Signs Date Time Temp Pulse Resp B/P (MAP) Pulse Ox O2 Delivery O2 Flow Rate FiO2 08/17/17 10:19 97.7 81 20 116/78 (91) 98 Room Air Intake and Output 08/18/17 07:00 Intake Total 680 ml Balance 680 ml Intake Oral 680 ml # Voids 2 Abdomen: Normal bowel sounds, Soft Heart: Regular rate, Normal S1, Normal S2 Extremities: No cyanosis, Normal pulses General: Alert, Oriented X3, Cooperative Lungs: Clear to auscultation Neuro: Normal speech Psych/Mental Status: Mood NL Review of Relevant I have reviewed the following items darinel (where applicable) has been applied. Labs Laboratory Tests Test 08/16/17 06:45 08/16/17 07:14 08/16/17 14:20 08/16/17 19:50 White Blood Count 5.6 x10^3/uL (4.0-11.0) Red Blood Count 4.22 x10^6/uL (4.30-5.70) Hemoglobin 14.2 g/dL (13.0-17.5) Hematocrit 39.9 % (39.0-53.0) Mean Corpuscular Volume 95 fL (79-100) Mean Corpuscular Hemoglobin 34 pg (25-35) Mean Corpuscular Hemoglobin Concent 36 g/dL (31-37) Red Cell Distribution Width 13.1 % (11.5-14.5) Platelet Count 150 x10^3/uL (140-400) Neutrophils (%) (Auto) 55 % (31-73) Lymphocytes (%) (Auto) 34 % (24-48) Monocytes (%) (Auto) 8 % (0-9) Eosinophils (%) (Auto) 3 % (0-3) Basophils (%) (Auto) 1 % (0-3) Neutrophils # (Auto) 3.1 x10^3uL (1.8-7.7) Lymphocytes # (Auto) 1.9 x10^3/uL (1.0-4.8) Monocytes # (Auto) 0.4 x10^3/uL (0.0-1.1) Eosinophils # (Auto) 0.2 x10^3/uL (0.0-0.7) Basophils # (Auto) 0.0 x10^3/uL (0.0-0.2) Prothrombin Time 9.8 SEC (9.4-11.4) Prothromb Time International Ratio 1.0 (0.9-1.1) Activated Partial Thromboplast Time 24 SEC (23-33) Sodium Level 141 mmol/L (136-145) Potassium Level 3.7 mmol/L (3.5-5.1) Chloride Level 104 mmol/L (98-107) Carbon Dioxide Level 26 mmol/L (21-32) Anion Gap 11 (6-14) Blood Urea Nitrogen 10 mg/dL (8-26) Creatinine 1.1 mg/dL (0.7-1.3) Estimated GFR (Cockcroft-Gault) 67.8 BUN/Creatinine Ratio 9 (6-20) Glucose Level 98 mg/dL (70-99) Calcium Level 9.3 mg/dL (8.5-10.1) Total Bilirubin 0.4 mg/dL (0.2-1.0) Aspartate Amino Transf (AST/SGOT) 12 U/L (15-37) Alanine Aminotransferase (ALT/SGPT) 18 U/L (16-63) Alkaline Phosphatase 74 U/L (46-116) Creatine Kinase 122 U/L (39-308) Creatine Kinase MB (Mass) < 0.5 ng/mL (0.0-3.6) Creatine Kinase MB Relative Index 0.4 % (0-4) Troponin I Quantitative < 0.017 ng/mL (0-0.055) < 0.017 ng/mL (0-0.055) < 0.017 ng/mL (0-0.055) Total Protein 7.3 g/dL (6.4-8.2) Albumin 3.9 g/dL (3.4-5.0) Albumin/Globulin Ratio 1.1 (1.0-1.7) Triglycerides Level 76 mg/dL (0-150) Cholesterol Level 179 mg/dL (0-200) LDL Cholesterol, Calculated 113 mg/dL (0-100) VLDL Cholesterol, Calculated 15 mg/dL (0-40) Non-HDL Cholesterol Calculated 128 mg/dL (0-129) HDL Cholesterol 51 mg/dL (40-60) Cholesterol/HDL Ratio 3.0 Salicylates Level 4.9 mg/dL (2.8-20.0) Salicylate Last Dose Date 08/16/2017 Salicylate Last Dose Time 0645 Ethyl Alcohol Level < 10 mg/dL (0-10) Urine Collection Type Unknown Urine Color Yellow Urine Clarity Clear Urine pH 7.0 Urine Specific [place] 1.015 Urine Protein Neg (NEG-TRACE) Urine Glucose (UA) Neg mg/dL (NEG) Urine Ketones (Stick) Neg mg/dL (NEG) Urine Blood Neg (NEG) Urine Nitrite Neg (NEG) Urine Bilirubin Neg (NEG) Urine Urobilinogen Dipstick 0.2 mg/dL (0.2 mg/dL) Urine Leukocyte Esterase Neg (NEG) Urine RBC 0 /HPF (0-2) Urine WBC 0 /HPF (0-4) Urine Squamous Epithelial Cells None /LPF Urine Bacteria 0 /HPF (0-FEW) Urine Opiates Screen Neg (NEG) Urine Methadone Screen Neg (NEG) Urine Barbiturates Neg (NEG) Urine Phencyclidine Screen Neg (NEG) Urine Amphetamine/Methamphetamine Neg (NEG) Urine Benzodiazepines Screen Neg (NEG) Urine Cocaine Screen Neg (NEG) Urine Cannabinoids Screen Neg (NEG) Urine Ethyl Alcohol Neg (NEG) Test 08/17/17 05:48 08/17/17 09:08 White Blood Count 4.8 x10^3/uL (4.0-11.0) Red Blood Count 4.08 x10^6/uL (4.30-5.70) Hemoglobin 13.7 g/dL (13.0-17.5) Hematocrit 38.7 % (39.0-53.0) Mean Corpuscular Volume 95 fL (79-100) Mean Corpuscular Hemoglobin 34 pg (25-35) Mean Corpuscular Hemoglobin Concent 35 g/dL (31-37) Red Cell Distribution Width 13.2 % (11.5-14.5) Platelet Count 159 x10^3/uL (140-400) Neutrophils (%) (Auto) 47 % (31-73) Lymphocytes (%) (Auto) 42 % (24-48) Monocytes (%) (Auto) 7 % (0-9) Eosinophils (%) (Auto) 4 % (0-3) Basophils (%) (Auto) 1 % (0-3) Neutrophils # (Auto) 2.2 x10^3uL (1.8-7.7) Lymphocytes # (Auto) 2.0 x10^3/uL (1.0-4.8) Monocytes # (Auto) 0.3 x10^3/uL (0.0-1.1) Eosinophils # (Auto) 0.2 x10^3/uL (0.0-0.7) Basophils # (Auto) 0.0 x10^3/uL (0.0-0.2) Sodium Level 142 mmol/L (136-145) Potassium Level 4.0 mmol/L (3.5-5.1) Chloride Level 108 mmol/L (98-107) Carbon Dioxide Level 27 mmol/L (21-32) Anion Gap 7 (6-14) Blood Urea Nitrogen 13 mg/dL (8-26) Creatinine 1.1 mg/dL (0.7-1.3) Estimated GFR (Cockcroft-Gault) 67.8 Glucose Level 93 mg/dL (70-99) Calcium Level 9.2 mg/dL (8.5-10.1) D-Dimer (Michelle) 0.36 mg/L (0.00-0.50) Lactic Acid Level 1.4 mmol/L (0.4-2.0) Medications Current Medications Aspirin (Aspirin Enteric Coated) 325 mg 1X ONCE PO Last administered on 08:08; Start 08/16/17 at 07:30; Stop 08/16/17 at 07:32; Status DC Ondansetron HCl (Zofran) 4 mg PRN Q4HRS PRN IV NAUSEA/VOMITING; Start 08/16/17 at 09:30; Stop 08/17/17 at 09:29; Status DC Acetaminophen (Tylenol) 1,000 mg 1X ONCE PO Last administered on 08/16/17 10: 30; Start 08/16/17 at 10:30; Stop 08/16/17 at 10:31; Status DC Quetiapine Fumarate (SEROquel) 50 mg BID92 PO Last administered on 08/17/17 12 :16; Start 08/16/17 at 14:00 Citalopram Hydrobromide (CeleXA) 40 mg QHS PO Last administered on 08/16/17 20 :57; Start 08/16/17 at 21:00 Quetiapine Fumarate (SEROquel) 600 mg QHS PO Last administered on 08/16/17 20: 57; Start 08/16/17 at 21:00 Nicotine (Nicoderm Cq 21mg) 1 patch DAILY TD Last administered on 08/17/17 12: 16; Start 08/16/17 at 13:00 Influenza Virus Vaccine Quadrival (Fluarix Quad Syringe) 0.5 ml ONCE ONCE VAX IM ; Start 08/16/17 at 21:00; Stop 08/17/17 at 02:58; Status DC Pneumococcal Polyvalent Vaccine (Pneumovax 23) 0.5 ml ONCE ONCE VAX IM ; Start 08/16/17 at 21:00; Stop 08/17/17 at 02:58; Status DC Aspirin (Markos Aspirin) 325 mg DAILYWBKFT PO ; Start 08/17/17 at 08:00; Stop at 08:58; Status DC Enoxaparin Sodium (Lovenox) 40 mg HS SQ Last administered on 08/16/17 20:57; Start 08/16/17 at 21:00; Stop 08/17/17 at 09:11; Status DC Influenza Virus Vaccine Quadrival (Fluarix Quad Syringe) 0.5 ml ONCE ONCE VAX IM ; Start 08/17/17 at 12:00; Stop 08/17/17 at 12:02; Status DC Pneumococcal Polyvalent Vaccine (Pneumovax 23) 0.5 ml ONCE ONCE VAX IM ; Start 08/17/17 at 12:00; Stop 08/17/17 at 12:02; Status DC Regadenoson (Lexiscan) 0.4 mg 1X ONCE IV ; Start 08/17/17 at 08:00; Stop at 08:01; Status DC Aspirin (Children'S Aspirin) 81 mg DAILYWBKFT PO Last administered on 12:16; Start 08/17/17 at 09:00 Apixaban (Eliquis) 2.5 mg BID PO Last administered on 08/17/17 12:16; Start at 09:00 Atorvastatin Calcium (Lipitor) 80 mg QHS PO ; Start 08/17/17 at 21:00 Ceftriaxone Sodium 1 gm/ Sodium Chloride 50 ml @ 100 mls/hr Q24H IV Last administered on 08/17/17 12:15; Start 08/17/17 at 10:00 Active Scripts Active Reported Aspirin 325 Mg Tablet 1 Tab PO BID PRN Seroquel (Quetiapine Fumarate) 50 Mg Tablet 50 Mg PO BID92 Seroquel (Quetiapine Fumarate) 400 Mg Tablet 600 Mg PO HS Escitalopram Oxalate 20 Mg Tablet 20 Mg PO HS Vitals/I & O Vital Sign - Last 24 Hours 08/16/17 08/16/17 08/16/17 08/16/17 14:40 20:00 20:04 22:47 Temp 97.5 97.8 97.5 Pulse 87 99 80 Resp 20 20 18 B/P (MAP) 131/94 (106) 117/79 (92) 99/67 (78) Pulse Ox 95 98 97 O2 Delivery Room Air Room Air Room Air Room Air 08/17/17 08/17/17 08/17/17 06:22 08:00 10:19 Temp 97.9 97.7 Pulse 84 81 Resp 18 20 B/P (MAP) 116/70 (85) 116/78 (91) Pulse Ox 95 98 O2 Delivery Room Air Room Air Room Air Intake and Output 08/17/17 08/17/17 08/18/17 15:00 23:00 07:00 Intake Total 680 ml Balance 680 ml MELI CAMP APRN Aug 17, 2017 13:17
[2017-08-17 15:29] VITALS: BP 130/84
[2017-08-17 15:48] LABS: FECAL OB PT NEGATIVE (NEG)
--- NOTE | 2017-08-17 16:32 | RAD ---
APPROVED REPORT Test Type: Pharmacological Stress Nurse/Tech: RT Dereck (R) (N) Test Indications: chest pain Cardiac History: see EHR Medications: see EHR Medical History: see EHR Resting ECG: Sinus rhythm, early transition, no acute abnormalities Resting Heart Rate: 89 bpm Resting Blood Pressure: 139/85mmHg Pretest Chest Pain: None Nurse/Tech Notes Consent: The procedure was explained to the patient in lay terms. Informed consent was witnessed. Rory eout was entered into [employer] History and Stress Test performed by RT Dereck (R) (N) Pharm. Details Pharmacologic stress testing was performed using 0.4mg per 5ml of regadenoson given intravenously ove r 7-10 seconds. POST EXERCISE Reason for Termination: Infusion complete Max HR: 107 bpm Max Blood Pressure: 150/90mmHg INTERPRETATION Stress EKG Conclusion: The resting EKG shows a sinus rhythm with nonspecific ST-T wave changes. The stress EKG shows no significant changes from baseline. No EKG evidence of stressed induced ischemia. Imaging Protocol IMAGE PROTOCOL: Rest Tc-99m/stress Tc-99m 1 day Rest: Stress: Viability: Radiopharm.Tc99m [id number] Sestamibi Dose11.6mCi 34.1mCi Duration 15min. 10min. Img Date 08/17/2017 08/17/2017 Inj-Img [id number]. 60min. Rest Admin Site:IV - Right AntecubitalAdministrator: RT Dereck (R)(N) Stress Admin Site: IV - Right AntecubitalAdministrator: RT Dereck (R)(N) STRESS DATA End Diast. Vol.100.0mlAv. Heart Rate96.0bpm LVEDV index BSA2.0mlCardiac Output0.1L/min End Syst. Vol.39.0mlCO Index BSA5.9L/min LVESV index BSA1.0mlMyocardial Zeqo205.0g Eject. Ogyzmpnp96.0% Stress Rates Pk. Fill Rate3.32EDV/secLVtime Pk. Fill 103.39msec Pk. Empty Rate4.45ESV/secLVtime Pk. Uyzqx619.14msec 11/24 Pk. Fill1.98EDV/sec Stress Scores Regional WT2.00Summed WT12.00 Regional WM0.00Summed WM4.00 LV Perfusion The stress scans showed mild thinning in the inferior septal region. The rest scans showed mild thinning in the inferior septal region. Nuclear imaging shows no evidence of significant reversible ischemia. Nuclear imaging shows mild fixed thinning in the anterior septal region consistent with a previous in farct. Wall Motion Left ventricular systolic function is overall intact with ejection fraction of 61%. LV Perf. Quant 17 Seg. SSS9.00 17 Seg. SRS12.00 17 Seg. SDS0.00 Stress Defect Extent (% LAD)6.30Rest Defect Extent (% LAD)15.00Rev. Defect Extent (% LAD)1.30 Stress Defect Extent (% LCX) 6.30Rest Defect Extent (% LCX)15.00Rev. Defect Extent (% LCX)2.50 Stress Defect Extent (% RCA)33.30Rest Defect Extent (% RCA)38.90Rev. Defect Extent (% RCA)0.00 Stress Defect Extent (% UNRULY)14.60Rest Defect Extent (% UNRULY)27.40Rev. Defect Extent (% UNRULY)1.30 Conclusion 1. No EKG evidence of stressed induced ischemia. 2. Nuclear imaging shows no reversible ischemia. 3. 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 4. Overall intact LV systolic function with ejection fraction of 61%. 5. Moderate risk nuclear stress test showing intact LV systolic function and no reversible ischemia.
[2017-08-17] MEDS ORDERED: APIX2.5T PO (17:51)
[2017-08-17] MEDS ORDERED: ATOR20TA58 PO (17:51)
[2017-08-17] MEDS ORDERED: ASPI-630 PO (17:51)
[2017-08-17] MEDS ORDERED: ATORVASTATIN CALCIUM 20 MG TABLET PO SCH (21:00)
--- NOTE | 2017-08-18 07:20 | CONS ---
DATE OF CONSULTATION: 08/16/2017 NEUROLOGIC CONSULTATION REFERRING PHYSICIAN: Dr. Thorpe. REASON FOR CONSULTATION: TIA and chest pain. HISTORY OF PRESENT ILLNESS: This is a 62-year-old right-handed male who was admitted through Emergency Room this morning after he presented with chief complaints of slurred speech, tightness of the neck, numbness and tingling of the right side. The symptoms began 4:00 o'clock a.m. and lasted approximately 30 minutes. He also complains of substernal chest pain associated with nausea, diaphoresis and started on a regular dose of aspirin. The patient stated he has had unsteady gait, but he denies any recent falls. He did drink 8 beers yesterday. He used to drink 6 packs of beer twice monthly. Currently, he denies headaches, visual disturbances, nausea, vomiting, chest pain, or palpitations. PAST MEDICAL HISTORY: Significant for hypertension, hyperlipidemia, diabetes mellitus type 2, TIA, depression, and benign prostate hypertrophy. History of schizophrenia. PAST SURGICAL HISTORY: Significant for a right fibular fracture, required casting. SOCIAL HISTORY: The patient is single. He has no children. He smokes 1 pack of cigarettes daily. He drinks 6 packs of beer twice monthly. He denies illegal drug use. FAMILY HISTORY: Positive for hypertension. Father of prostate cancer. Mother is alive with history of hypertension and stroke. CURRENT MEDICATIONS: Aspirin 325 mg daily, Seroquel 600 mg at bedtime, Celexa 40 mg at bedtime, and Seroquel 50 mg b.i.d. ALLERGIES: No known drug allergies. REVIEW OF SYSTEMS: A 10-point review of systems was performed as mentioned above in the history of present illness, otherwise unremarkable. PHYSICAL EXAMINATION: GENERAL: Well-developed, well-nourished white male, not in acute distress. He weighs 185 pounds. VITAL SIGNS: Blood pressure 131/94, respiratory rate 20, pulse is 87 and regular, temperature is 97.5, oxygen saturation 95% on room air. HEENT: Normocephalic, atraumatic, otherwise unremarkable. NECK: Supple. Negative for carotid bruit, lymphadenopathy or thyromegaly. LUNGS: Clear to A and P. CARDIOVASCULAR: Regular rhythm, normal S1, S2. There is no S3, S4 or murmur. ABDOMEN: Soft. Bowel sounds positive. EXTREMITIES: Negative for cyanosis, clubbing or pitting edema. NEUROLOGICAL EXAM: Mental Status: The patient is alert and oriented x 3. The speech is fluent. There is no language dysfunction. Memory, judgment, and abstract thinking are normal. The patient denies hallucination or delusion. CRANIAL NERVES: Visual clay are full. The pupils are reactive to light and accommodation. The extraocular movements are intact. There is no nystagmus. There is no facial motor or sensory deficit. Hearing is intact bilaterally. The palate is elevated symmetrically. Sternocleidomastoid muscles are powerful bilaterally. The patient shrugs his shoulders symmetrically. Protrudes his tongue in the midline without fasciculation or atrophy. MOTOR: No focal muscle bulk was seen. The tone is normal. The strength is 5/5 throughout. Sensory examination revealed diminished pinprick and light touch senses in patchy distributions in both lower extremities. Deep tendon reflexes were symmetric and hypoactive with absent Achilles responses. Gait: The patient steady stance, but Romberg sign is positive and tandem gait is abnormal. LABORATORY DATA: CBC revealed white blood cells of 5.6 thousand, hemoglobin 14.2, hematocrit 39.9, platelet count 150,000. Chemistry revealed of sodium of 141, potassium 3.7, chloride 104, CO2 26, BUN 10, creatinine 1.1, glucose 98. Liver enzymes are normal. DIAGNOSTIC DATA: Nonenhanced head CT scan revealed mild chronic small vessel ischemic changes, otherwise no acute intracranial process. Carotid Doppler study revealed mild to moderate plaquing bilaterally with stenosis of 50-69% on the right and 50% on the left. A chest x-ray revealed COPD and questionable mild infiltrate in the left base. Urinalysis is negative. Urine drug screen is negative and alcohol level less than 10. PT is 9.8, INR 1 and PTT is 24. Troponin level less than 0.017 with a CK of 122. CK-MB less than 0.5. Echocardiogram revealed a normal left ventricular ejection fraction between 55 and 60, otherwise unremarkable. IMPRESSION: 1. Questionable transient ischemic attack, presented with right-sided numbness with no current focal neurological deficit. 2. Chest pain within normal first set of cardiac enzymes and normal EKG without acute changes. 3. Multiple medical problems include diabetes mellitus, hypertension and hyperlipidemia. 4. Rule out peripheral neuropathy of the lower extremities. RECOMMENDATIONS: 1. Continue with current management initiated by Dr. Thorpe. 2. Continue with Cardiology recommendations. 3. We will arrange for EMG/NCS of the lower extremities to rule out diabetic neuropathy if the patient has not had recent studies. Physical therapy evaluation. M Clark MCKEON MD DR: ENDY/gale JOB#: [id number] / [id number]
--- NOTE | 2017-08-18 13:33 | DS ---
DATE OF DISCHARGE: 08/17/2017 This is a 62-year-old male, who was admitted by Dr. Thorpe with generalized weakness primarily on the right side of his body. The patient in turn did have possible TIA as most of those symptoms did resolve overnight. The patient in turn had an MPI study for the chest pain and basically, there was no evidence of ischemia. The patient also had carotid Dopplers and those demonstrated mild to moderate stenosis, 50%-70%. The patient was discharged home. IMPRESSION: Transient ischemic attack, chest pain, unknown etiology and the patient will follow up with Dr. Sumner as an outpatient as well as Dr. ____ for his Cardiology. ADDISON CAMPA MD DR: DALIA/gale JOB#: [id number] / [id number]
== END 2017-08-17 18:13 | disposition home or self-care (01) | DRG 69 ==
LOC: ER 06:29 → 1 SOUTH 09:22
PROVIDERS: ADMIT Family Medicine; ATTEND Family Medicine
DX: G45.9 Transient cerebral ischemic attack, unspecified (principal); F20.9 Schizophrenia, unspecified; I10 Essential (primary) hypertension; R07.9 Chest pain, unspecified; E11.9 Type 2 diabetes mellitus without complications; E78.5 Hyperlipidemia, unspecified; F17.210 Nicotine dependence, cigarettes, uncomplicated; J44.9 Chronic obstructive pulmonary disease, unspecified; N40.0 Benign prostatic hyperplasia without lower urinary tract symptoms; K21.9 Gastro-esophageal reflux disease without esophagitis; F31.9 Bipolar disorder, unspecified; Z80.42 Family history of malignant neoplasm of prostate; Z82.3 Family history of stroke; Z82.49 Family history of ischemic heart disease and other diseases of the circulatory system; Z86.73 Personal history of transient ischemic attack (TIA), and cerebral infarction without residual deficits; Z87.81 Personal history of (healed) traumatic fracture
CPT/HCPCS: 36415; 70450; 71010; 78452; 80048; 80053; 80061; 80307; 81001; 82274; 82553; 82607; 83605; 84443; 84484; 85025; 85379; 85610; 85730; 90686; 90732; 93005; 93017; 93880; 96374; 96375; 96376; A9500; C8929; G0480; J0696; J1650; J2785; 99285-25; G0479

== ENCOUNTER → 2017-10-27 | Outpatient (CLI) | payer MEDICARE ==
[~2017-10-27] MED LIST changes: +APIX2.5T PO; +ASPI-630 PO; +ASPI325T8 PO; +ATOR20TA58 PO; +IOHEXOL 300 MG/ML 75 ML VIAL. IV ONE; +QUET400T4 PO; +QUET50TA5 PO
--- NOTE | 2017-10-27 15:25 | RAD ---
Examination: CT angiogram of the chest History: History of shortness of breath, elevated d-dimer Comparison: None available Technique: Axial CT and radiographic images of the chest were performed with IV contrast. Coronal and sagittal 3-D MIP reformats are performed PQRS Compliance Statement: One or more of the following individualized dose reduction techniques were utilized for this examination: 1. Automated exposure control 2. Adjustment of the mA and/or kV according to patient size 3. Use of iterative reconstruction technique Findings: The central airways are patent. The heart size grossly appears unremarkable. Caliber of the aorta grossly appears unremarkable. Diffuse coronary artery calcifications identified. There is no evidence of filling defect identified in the main pulmonary arterial trunk and right and left main pulmonary arteries and visualized lobar, segmental branches of the pulmonary arteries. Bilateral emphysematous changes identified in the lungs. Patchy bibasal lung airspace opacities probably atelectasis or groundglass infiltrates. The visualized liver demonstrates mild diffuse decreased attenuation likely hepatic steatosis. Visualized adrenal glands grossly was unremarkable. Moderate degenerative changes thoracic spine. Impression: 1. No evidence of pulmonary embolism. 2. Diffuse coronary artery calcifications. 3. Bilateral lung emphysematous changes. Bibasal groundglass airspace opacities likely atelectasis or groundglass infiltrates.
== END | disposition home or self-care (01) ==
LOC: CT 14:36
PROVIDERS: ATTEND Nurse Practitioner Adult Health
DX: I25.10 Atherosclerotic heart disease of native coronary artery without angina pectoris (principal); J44.9 Chronic obstructive pulmonary disease, unspecified; I10 Essential (primary) hypertension; E11.9 Type 2 diabetes mellitus without complications; F17.200 Nicotine dependence, unspecified, uncomplicated
CPT/HCPCS: 71275; Q9967

== ENCOUNTER → 2018-01-07 | Outpatient (CLI) | payer MEDICARE ==
[~2018-01-07] MED LIST changes: +IOHEXOL 240 MG/ML 50ML VIAL. ONE
[2018-01-07 15:36] LABS: BASO % 1 % (0-3); EOS # 0.1 x10^3/uL (0.0-0.7); EOS % 2 % (0-3); LYMPH # 2.4 x10^3/uL (1.0-4.8); LYMPH % 41 % (24-48); MEAN CORPUSCULAR HEMOGLOBIN 33 pg (25-35); MEAN CORPUSCULAR HGB CONC 35 g/dL (31-37); MEAN CORPUSCULAR VOLUME 94 fL (79-100); MONO # 0.5 x10^3/uL (0.0-1.1); MONO % 8 % (0-9); NEUT # 2.8 x10^3uL (1.8-7.7); NEUT % 48 % (31-73); PLATELET COUNT 183 x10^3/uL (140-400); RED BLOOD COUNT 4.56 x10^6/uL (4.30-5.70); WHITE BLOOD COUNT 5.9 x10^3/uL (4.0-11.0)
[2018-01-07 15:44] LABS: ALBUMIN 3.9 g/dL (3.4-5.0); ALBUMIN/GLOBULIN RATIO 1.1 (1.0-1.7); CALCIUM 9.5 mg/dL (8.5-10.1); CREATININE 1.1 mg/dL (0.7-1.3); GFR 67.8; POTASSIUM 3.9 mmol/L (3.5-5.1); TOTAL BILIRUBIN 0.3 mg/dL (0.2-1.0); TOTAL PROTEIN 7.5 g/dL (6.4-8.2)
--- NOTE | 2018-01-07 16:28 | RAD ---
CT abdomen and pelvis with contrast Indication: LOWER ABDOMINAL PAIN WITH NAUSEA
ORAL AND 75MLS OMNI 300 IV CONRAST. . Technique: Intravenous contrast is given. Oral contrast was administered Comparison:None available Exposure: One or more of the following individualized dose reduction techniques were utilized for this examination: 1. Automated exposure control 2. Adjustment of the mA and/or kV according to patient size 3. Use of iterative reconstruction technique. FINDINGS: Lower thorax: Lung bases are clear. Pneumoperitoneum:No gross pneumoperitoneum. Liver: Mildly enlarged. Right lobe measures 20.5 cm longitudinal. Spleen: Upper limits normal in size, 12.5 cm long axis. Pancreas: Unremarkable Adrenals:No evidence of mass. Kidneys:Unremarkable Gallbladder: Contracted. No evidence of calcified stone. Aorta: Abdominal aorta is nonaneurysmal Lymph nodes: No significant enlargement GI tract: Small hiatal hernia. No bowel obstruction. No evidence of acute colitis. Moderate retained stool through the colon. Appendix:Visualized, appears within normal limits. Ascites: No gross ascites. Urinary bladder: Not opacified, but no apparent abnormality. Prominent prostate gland measuring 5 cm transverse diameter. Bones: Degenerative spondylosis. IMPRESSION: 1. Mild hepatomegaly. 2. Borderline splenomegaly. 3. Constipation. 5. Prostate gland is prominent in size, 5 cm transverse. Electronically signed by: Dewayne Molina MD (01/07/2018 4:25 PM) [facility]
== END | disposition home or self-care (01) ==
LOC: CT 15:03
PROVIDERS: ATTEND Physician Assistant
DX: R16.0 Hepatomegaly, not elsewhere classified (principal); K82.8 Other specified diseases of gallbladder; K44.9 Diaphragmatic hernia without obstruction or gangrene; K59.00 Constipation, unspecified; R11.0 Nausea; R06.02 Shortness of breath; M47.899 Other spondylosis, site unspecified
CPT/HCPCS: 36415; 74177; 80053; 82150; 82550; 83690; 84484; 85025; 85379; Q9966; Q9967

== ENCOUNTER 2018-10-25 13:23 | Observation (INO) | payer MEDICARE, OTHER ==
[~2018-10-25] VITALS: Ht 182.9 cm; Wt 76.2 kg
[~2018-10-25 13:23] MED LIST changes: -IOHEXOL 240 MG/ML 50ML VIAL. ONE; -IOHEXOL 300 MG/ML 75 ML VIAL. IV ONE; -RISP3TAB PO; +RISP3TAB8 PO
[2018-10-25] MEDS ORDERED: ONDANSETRON PF 4 MG/2 ML VIAL. IV PRN (15:00)
[2018-10-25] MEDS ORDERED: ACETAMINOPHEN 325 MG TABLET PO PRN (15:00)
[2018-10-25] MEDS ORDERED: ALBU8.5H8 INH (15:02)
[2018-10-25 15:21] LABS: BASO % 1 % (0-3); EOS # 0.1 x10^3/uL (0.0-0.7); EOS % 3 % (0-3); HEMATOCRIT 42.9 % (39.0-53.0); LYMPH # 1.5 x10^3/uL (1.0-4.8); LYMPH % 35 % (24-48); MEAN CORPUSCULAR HEMOGLOBIN 34 pg (25-35); MEAN CORPUSCULAR HGB CONC 35 g/dL (31-37); MEAN CORPUSCULAR VOLUME 97 fL (79-100); MONO # 0.2 x10^3/uL (0.0-1.1); MONO % 4 % (0-9); NEUT # 2.5 x10^3uL (1.8-7.7); NEUT % 57 % (31-73); PLATELET COUNT 161 x10^3/uL (140-400); RED BLOOD COUNT 4.43 x10^6/uL (4.30-5.70); RED CELL DISTRIBUTION WIDTH 13.6 % (11.5-14.5); WHITE BLOOD COUNT 4.3 x10^3/uL (4.0-11.0)
[2018-10-25 15:36] VITALS: BP 104/72
[2018-10-25 15:41] LABS: ALBUMIN 3.8 g/dL (3.4-5.0); ALBUMIN/GLOBULIN RATIO 1.1 (1.0-1.7); CALCIUM 9.1 mg/dL (8.5-10.1); CREATININE 1.1 mg/dL (0.7-1.3); GFR 67.6; MAGNESIUM 1.9 mg/dL (1.8-2.4); POTASSIUM 3.4 mmol/L (3.5-5.1); TOTAL BILIRUBIN 0.4 mg/dL (0.2-1.0); TOTAL PROTEIN 7.4 g/dL (6.4-8.2)
--- NOTE | 2018-10-25 15:52 | RAD ---
Chest, 2 views, 10/25/2018: HISTORY: Chest pain and palpitations Comparison is made to a study from 08/16/2017. The heart size is within normal limits. There is mild gaseous distention of the stomach with slight elevation of the left hemidiaphragm. There are mild parenchymal scars. No acute infiltrate is seen. There is no evidence of pleural fluid. Moderate hypertrophic spurring is present in the spine. There is an old mild anterior midthoracic vertebral compression deformity. IMPRESSION: 1. Mild gaseous distention of the stomach. 2. No acute cardiopulmonary abnormality is detected. Electronically signed by: Magdaleno Watkins MD (10/25/2018 3:49 PM) [facility]
[2018-10-25] MEDS ORDERED: ASPIRIN 81 MG TAB.CHEW PO ONE (16:15)
[2018-10-25] MEDS ORDERED: POTASSIUM CHLORIDE 20 MEQ TABLET.ER. PO ONE (16:15)
--- NOTE | 2018-10-25 16:39 | EKG ---
[address] [address] Test Date: 2018-10-25 Test Time: 15:16:23 Pat Name: AYO ALBERTO Department: Room: [place] [address] Gender: M Echocardiographer: GELA : 1955 Requested By: ADDISON CAMPA Order Number: [id number] Reading MD: Moe Walker MD Measurements Intervals [place] Rate: 106 P: 37 [place]: 158 QRS: 20 QRSD: 84 T: 65 QT: 362 QTc: 483 Interpretive Statements SINUS TACHYCARDIA non-specific st/t changes Electronically Signed On 10-26-2018 16:38:07 [employer] by Moe Walker MD
[2018-10-25] MEDS: NICOTINE 21MG PATCH. TD SCH (17:31)
[2018-10-25] MEDS ORDERED: ALBUTEROL SULFATE 2.5 MG/3 ML NEBU. NEB PRN (18:15)
[2018-10-25] MEDS ORDERED: ALBUTEROL SULFATE 8GM INHALER. INH PRN (18:15)
[2018-10-25 19:34] VITALS: BP 117/87
[2018-10-25] MEDS ORDERED: QUEtiapine 100 MG TABLET. PO SCH (21:00)
[2018-10-25] MEDS: METOPROLOL TART IMMED RELEASE 25 MG TABLET PO SCH (21:24)
[2018-10-25] MEDS: HEPARIN for SUB-Q USE 5,000 UNIT/ML VIAL. SQ SCH (21:33)
[2018-10-25] MEDS ORDERED: HEPARIN for SUB-Q USE 5,000 UNIT/ML VIAL. SQ SCH (22:00)
[2018-10-25 23:24] VITALS: BP 86/58
[2018-10-26 00:18] VITALS: BP 85/68
[2018-10-26] MEDS: HEPARIN for SUB-Q USE 5,000 UNIT/ML VIAL. SQ SCH ×2 (05:47→13:44)
[2018-10-26 05:57] VITALS: BP 118/79
[2018-10-26 06:13] LABS: CREATININE 1.1 mg/dL (0.7-1.3); GFR 67.6; POTASSIUM 3.7 mmol/L (3.5-5.1)
[2018-10-26 06:17] LABS: BASO % 1 % (0-3); EOS # 0.2 x10^3/uL (0.0-0.7); EOS % 4 % (0-3); HEMATOCRIT 40.7 % (39.0-53.0); LYMPH # 2.2 x10^3/uL (1.0-4.8); LYMPH % 53 % (24-48); MEAN CORPUSCULAR HEMOGLOBIN 34 pg (25-35); MEAN CORPUSCULAR HGB CONC 35 g/dL (31-37); MEAN CORPUSCULAR VOLUME 98 fL (79-100); MONO # 0.3 x10^3/uL (0.0-1.1); MONO % 6 % (0-9); NEUT # 1.5 x10^3uL (1.8-7.7); NEUT % 36 % (31-73); PLATELET COUNT 143 x10^3/uL (140-400); RED BLOOD COUNT 4.15 x10^6/uL (4.30-5.70); RED CELL DISTRIBUTION WIDTH 13.2 % (11.5-14.5); WHITE BLOOD COUNT 4.2 x10^3/uL (4.0-11.0)
[2018-10-26] MEDS: NICOTINE 21MG PATCH. TD SCH (07:29)
[2018-10-26] MEDS: METOPROLOL TART IMMED RELEASE 25 MG TABLET PO SCH (07:29)
[2018-10-26] MEDS ORDERED: NON FORMULARY ITEM (Aspirin 81 MG) PO SCH (08:00)
[2018-10-26] MEDS ORDERED: ASPIRIN ENTERIC COATED 325 MG TABLET.DR. PO SCH (08:00)
--- NOTE | 2018-10-26 09:12 | PDOC2 ---
MELI CAMP APRN 10/26/18 0912: CONSULT Date of Admission DATE: 10/26/18 TIME: 09:05 Reason for Consult: cp History of Present Illness Mr Beasley is a 62 year old male who presented with complaints of chest pain since Wednesday. He reports waking during the night Wednesday with shortness of breath and mid to left sided chest tightness. Discomfort did not radiate and was not increased with exertion, deep inspiration or position change. He was seen yesterday at his PCP office and subsequently admitted for evaluation and treatment, and consult was called. He reports discomfort constant until this am and now improved. He denies cough, fever, chills, congestive symptoms, edema , palpitations, lightheadedness or syncope. He was seen last year for chest discomfort and echo at that time revealed normal LV function and wall motion. MPI revealed fixed defect without reversibility. He normally follows with [facility]. Past Medical History echo 08/16/17 The left ventricular systolic function is normal. The Ejection Fraction is 55-60%. There is normal LV segmental wall motion. Transmitral Doppler flow pattern is Grade I-abnormal relaxation pattern. Doppler and Color Flow revealed mild mitral regurgitation. There is no evidence of significant pericardial effusion. Injection of bubbles documented no interatrial shunt. MPI 08/17/17 Conclusion 1. No EKG evidence of stressed induced ischemia. 2. Nuclear imaging shows no reversible ischemia. 3. 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 4. Overall intact LV systolic function with ejection fraction of 61%. 5. Moderate risk nuclear stress test showing intact LV systolic function and no reversible ischemia. hypertension, hyperlipidemia, type 2 diabetes mellitus, depression, recurrent TIAs. benign prostatic hypertrophy right fibular fracture Past Surgical History EGD and colonoscopy Family History sister has hypertension, father with prostate cancer. Mother has hypertension, right-sided hemiplegia, aphasia. Social History 1 ppd smoker, drinks 6 pack twice monthly, denies illicit drugs and is on disability for depression and schizophrenia. Current Medications Current Medications Acetaminophen (Tylenol) 650 mg PRN Q6HRS PRN PO Headaches, Temp > 101.5F; Start 10/25/18 at 15:00 Ondansetron HCl (Zofran) 4 mg PRN Q8HRS PRN IV NAUSEA/VOMITING; Start 10/25/18 at 15:00 Metoprolol Tartrate (Lopressor) 12.5 mg BID PO Last administered on 10/26/18at 07:29; Start 10/25/18 at 21:00 Aspirin (Aspirin Enteric Coated) 325 mg DAILYWBKFT PO Last administered on 10/26at 07:29; Start 10/26/18 at 08:00 Aspirin (Children'S Aspirin) 324 mg 1X ONCE PO Last administered on 10/25/18at 16:39; Start 10/25/18 at 16:15; Stop 10/25/18 at 16:16; Status DC Potassium Chloride (Klor-Con) 20 meq 1X ONCE PO Last administered on at 16:39; Start 10/25/18 at 16:15; Stop 10/25/18 at 16:16; Status DC Nicotine (Nicoderm Cq 21mg) 1 patch DAILY TD Last administered on 10/26/18at 07: 29; Start 10/25/18 at 17:30 Albuterol Sulfate (Ventolin Hfa Inhaler) 1 puff PRN Q6HRS PRN INH SHORTNESS OF BREATH; Start 10/25/18 at 18:15; Status UNV Quetiapine Fumarate (SEROquel) 400 mg HS PO Last administered on 10/25/18at 21: 24; Start 10/25/18 at 21:00 Albuterol Sulfate (Ventolin) 2.5 mg PRN Q6HRS PRN NEB SHORTNESS OF BREATH; Start 10/25/18 at 18:15 Non-Formulary Medication (Aspirin ) 81 mg DAILYWBKFT PO ; Start 10/26/18 at 08: 00; Status UNV Heparin Sodium (Porcine) (Heparin Sodium) 5,000 unit Q8HRS SQ Last administered on 10/26/18at 05:47; Start 10/25/18 at 22:00 Heparin Sodium (Porcine) (Heparin Sodium) 5,000 unit Q8HRS SQ ; Start 10/25/18 at 22:00; Status UNV Active Scripts Active Aspirin 81 Mg Tab.chew 81 Mg PO DAILYWBKFT 30 Days Reported Proair Hfa Inhaler (Albuterol Sulfate) 8.5 Gm Hfa.aer.ad 1 Puff INH PRN Q6HRS PRN Seroquel (Quetiapine Fumarate) 400 Mg Tablet 400 Mg PO HS resume at bedtime tonight Allergies: Coded Allergies: No Known Drug Allergies (Unverified , 05/09/14) Review of System as per HPI or negative General: Alert, Oriented X3, Cooperative, No acute distress HEENT: Atraumatic, EOMI, Mucous membr. moist/pink Lungs: Clear to auscultation, Normal air movement Heart: Regular rate, Normal S1, Normal S2, Other (no siognificant murmurs, no gallops, clicks or rubs) Abdomen: Normal bowel sounds, Soft, No tenderness Extremities: No cyanosis, No edema, Normal pulses Neuro: Normal speech, Strength at 5/5 X4 ext Psych/Mental Status: Mental status NL, Mood NL VITALS Vital Signs Date Time Temp Pulse Resp B/P (MAP) Pulse Ox O2 Delivery O2 Flow Rate FiO2 10/26/18 08:00 Room Air 10/26/18 07:29 85 10/26/18 05:57 97.4 16 118/79 (92) 97 10/25/18 15:36 0.0 Labs Laboratory Tests Test 10/25/18 15:09 10/25/18 15:25 10/26/18 00:35 10/26/18 05:49 White Blood Count 4.3 x10^3/uL (4.0-11.0) 4.2 x10^3/uL (4.0-11.0) Red Blood Count 4.43 x10^6/uL (4.30-5.70) 4.15 x10^6/uL (4.30-5.70) Hemoglobin 15.0 g/dL (13.0-17.5) 14.0 g/dL (13.0-17.5) Hematocrit 42.9 % (39.0-53.0) 40.7 % (39.0-53.0) Mean Corpuscular Volume 97 fL (79-100) 98 fL (79-100) Mean Corpuscular Hemoglobin 34 pg (25-35) 34 pg (25-35) Mean Corpuscular Hemoglobin Concent 35 g/dL (31-37) 35 g/dL (31-37) Red Cell Distribution Width 13.6 % (11.5-14.5) 13.2 % (11.5-14.5) Platelet Count 161 x10^3/uL (140-400) 143 x10^3/uL (140-400) Neutrophils (%) (Auto) 57 % (31-73) 36 % (31-73) Lymphocytes (%) (Auto) 35 % (24-48) 53 % (24-48) Monocytes (%) (Auto) 4 % (0-9) 6 % (0-9) Eosinophils (%) (Auto) 3 % (0-3) 4 % (0-3) Basophils (%) (Auto) 1 % (0-3) 1 % (0-3) Neutrophils # (Auto) 2.5 x10^3uL (1.8-7.7) 1.5 x10^3uL (1.8-7.7) Lymphocytes # (Auto) 1.5 x10^3/uL (1.0-4.8) 2.2 x10^3/uL (1.0-4.8) Monocytes # (Auto) 0.2 x10^3/uL (0.0-1.1) 0.3 x10^3/uL (0.0-1.1) Eosinophils # (Auto) 0.1 x10^3/uL (0.0-0.7) 0.2 x10^3/uL (0.0-0.7) Basophils # (Auto) 0.0 x10^3/uL (0.0-0.2) 0.0 x10^3/uL (0.0-0.2) D-Dimer (Michelle) 0.27 mg/L (0.00-0.50) Sodium Level 141 mmol/L (136-145) 139 mmol/L (136-145) Potassium Level 3.4 mmol/L (3.5-5.1) 3.7 mmol/L (3.5-5.1) Chloride Level 103 mmol/L (98-107) 105 mmol/L (98-107) Carbon Dioxide Level 29 mmol/L (21-32) 26 mmol/L (21-32) Anion Gap 9 (6-14) 8 (6-14) Blood Urea Nitrogen 19 mg/dL (8-26) 20 mg/dL (8-26) Creatinine 1.1 mg/dL (0.7-1.3) 1.1 mg/dL (0.7-1.3) Estimated GFR (Cockcroft-Gault) 67.6 67.6 BUN/Creatinine Ratio 17 (6-20) Glucose Level 155 mg/dL (70-99) 90 mg/dL (70-99) Lactic Acid Level 1.5 mmol/L (0.4-2.0) Calcium Level 9.1 mg/dL (8.5-10.1) 9.0 mg/dL (8.5-10.1) Magnesium Level 1.9 mg/dL (1.8-2.4) Total Bilirubin 0.4 mg/dL (0.2-1.0) Aspartate Amino Transf (AST/SGOT) 10 U/L (15-37) Alanine Aminotransferase (ALT/SGPT) 15 U/L (16-63) Alkaline Phosphatase 86 U/L (46-116) Creatine Kinase 68 U/L (39-308) Troponin I Quantitative < 0.017 ng/mL (0-0.055) < 0.017 ng/mL (0-0.055) XJ-Doh-V-Type Natriuretic Peptide 80 pg/mL (0-124) Total Protein 7.4 g/dL (6.4-8.2) Albumin 3.8 g/dL (3.4-5.0) Albumin/Globulin Ratio 1.1 (1.0-1.7) Nasal Screen MRSA (PCR) Negative (Negative) Images EKG - sinus rhythm, early R transition, non specific anterior st/t changes. No acute ischemic changes but st/t abn new from last EKG. Assessment/Plan 1. Chest pain, atypical - AK ruled out. Non specific st/t changes on EKG. Trop negative x 2. Suggest resume aspirin, low dose beta esau as tolerated, check lipids and resume statin. Check echo and if no significant abn, could discharge for outpatient MPI and CV follow up with primary placement secretary. 2. Hypertension - blood pressure is well controlled off medications. Resume low dose beta esau secondary to #1 as tolerated. 3. Hyperlipidemia - check lipids and resume statin 4. recurrent TIAs - no symptoms this admission. Bubble study done last Jul was negative. Could consider loop recorder. Defer to primary placement secretary. 5. Diabetes mellitus - per PCP YANG MCKEON MD 10/26/18 1640: CONSULT Assessment/Plan Pt. seen and examined. 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 No further CV testing necessary Normal EKG, trops. atypical symptoms Outpt f/u with primary cardiology. thanks MELI CAMP APRN Oct 26, 2018 09:12 YANG MCKEON MD Oct 26, 2018 16:40
[2018-10-26 11:30] VITALS: BP 120/83
--- NOTE | 2018-10-26 15:48 | CARD ---
MR#: [id number] Date of Study: 10/26/2018 Ordering Physician: MLEI CAMP, Referring Physician: ADDISON CAMPA Tech: Lindsay Griggs RDCS APPROVED REPORT EXAM: Two-dimensional and M-mode echocardiogram with Doppler and color Doppler. Other Information Quality : Good INDICATION Chest Pain 2D DIMENSIONS Left Atrium(2D)3.4 (1.6-4.0cm)IVSd0.8 (0.7-1.1cm) Aortic Root(2D)3.4 (2.0-3.7cm)LVDd4.4 (3.9-5.9cm) PWd0.8 (0.7-1.1cm)LVDs3.7 (2.5-4.0cm) FS (%) 25.0 %SV28.4 ml LVEF(%)50.0 (>50%) Aortic Valve AoV Peak Michael.107.9cm/sAoV VTI18.8cm AO Peak GR.4.7mmHgAO Mean GR.3mmHg BRYSON (VTI)4.39cm2 Mitral Valve MV E Mzqavark93.2cm/sMV DECEL CAFE82wl MV A Eoqnuxyc027.0cm/sE/A Ratio0.6 LEFT VENTRICLE The left ventricle is normal size. There is normal left ventricular wall thickness. Left ventricle sy stolic function is normal. The Ejection Fraction is 55%. There is normal LV segmental wall motion. Tr ansmitral Doppler flow pattern is Grade I-abnormal relaxation pattern. RIGHT VENTRICLE The right ventricle is normal size. The right ventricular systolic function is normal. ATRIA The left atrium size is normal. The right atrium size is normal. The interatrial septum is intact wit h no evidence for an atrial septal defect or patent foramen ovale as noted on 2-D or Doppler imaging. AORTIC VALVE The aortic valve is calcified but opens well. Doppler and Color Flow revealed no significant aortic r egurgitation. There is no significant aortic valvular stenosis. MITRAL VALVE The mitral valve is calcified but opens well. Mitral annular calcification is mild. There is no evide nce of mitral valve prolapse. There is no mitral valve stenosis. Doppler and Color-flow revealed trac e mitral regurgitation. TRICUSPID VALVE The tricuspid valve is normal in structure and function. Doppler and Color Flow revealed no tricuspid valve regurgitation noted. There is no tricuspid valve stenosis. PULMONIC VALVE The pulmonic valve is not well visualized. Doppler and Color Flow revealed no pulmonic valvular regur gitation. There is no pulmonic valvular stenosis. GREAT VESSELS The aortic root is normal in size. The ascending aorta is not well seen. The IVC is normal in size an d collapses >50% with inspiration. PERICARDIAL EFFUSION There is no evidence of significant pericardial effusion. Critical Notification Critical Value: No <Conclusion> Left ventricle systolic function is normal. The Ejection Fraction is 55%. There is normal LV segmental wall motion. Transmitral Doppler flow pattern is Grade I-abnormal relaxation pattern. Doppler and Color-flow revealed trace mitral regurgitation. There is no evidence of significant pericardial effusion. Signed by : Jaime Tavera, Electronically Approved : 10/26/2018 15:46:43
== END 2018-10-26 16:56 | disposition home or self-care (01) ==
LOC: ICU 14:03 → INTOOBSV 14:03
PROVIDERS: ADMIT Family Medicine; ATTEND Family Medicine
DX: R07.2 Precordial pain (principal); R06.02 Shortness of breath; R00.0 Tachycardia, unspecified; F17.210 Nicotine dependence, cigarettes, uncomplicated; F20.9 Schizophrenia, unspecified; E78.5 Hyperlipidemia, unspecified; I10 Essential (primary) hypertension; F32.9 Major depressive disorder, single episode, unspecified; N40.0 Benign prostatic hyperplasia without lower urinary tract symptoms; Z82.49 Family history of ischemic heart disease and other diseases of the circulatory system; Z86.73 Personal history of transient ischemic attack (TIA), and cerebral infarction without residual deficits; Z80.42 Family history of malignant neoplasm of prostate; E11.9 Type 2 diabetes mellitus without complications; Z88.8 Allergy status to other drugs, medicaments and biological substances; Z88.2 Allergy status to sulfonamides; Z79.899 Other long term (current) drug therapy
CPT/HCPCS: 36415; 71046; 80048; 80053; 80061; 82550; 83605; 83735; 83880; 84484; 85025; 85379; 87641; 93005; 93306; 96372; G0378; G0379; J1644

== ENCOUNTER → 2019-05-26 | Outpatient (CLI) | payer OTHER ==
[~2019-05-26] MED LIST changes: +ALBU2.5V8 INH
--- NOTE | 2019-05-26 14:45 | RAD ---
PQRS Compliance Statement: One or more of the following individualized dose reduction techniques were utilized for this examination: 1. Automated exposure control 2. Adjustment of the mA and/or kV according to patient size 3. Use of iterative reconstruction technique CT chest without contrast May 26, 2019 INDICATION: Hemoptysis, cough. Left lower lobe pneumonia. Chest pain. COMPARISON: CT chest October 27, 2017 TECHNIQUE: Multiple axial CT images of the chest were obtained without intravenous contrast. Coronal and sagittal reformats are provided. FINDINGS: Mild heterogeneity of the thyroid gland with a left inferior thyroid nodule measuring 9 mm. There is a right paratracheal lymph node measuring 9 mm by short axis. There is an AP window lymph node measuring 7 mm by short axis. Calcified prevascular lymph node is identified. Heart size within normal limits. Coronary artery vascular calcifications are present. Subcarinal lymph node measures 12 mm by short axis. There is mild centrilobular pulmonary emphysema. Mild bronchial wall thickening compatible with bronchitis. There is consolidation in the left lower lobe with an area of more masslike consolidation along the superior margin with air cavitation measuring 2.5 x 3.1 cm. Additional patchy areas of groundglass change noted in the superior segment left lower lobe with tree-in-bud morphology. Adrenal glands are normal in appearance. No suspicious findings identified in the versus portions of the upper abdomen. There is anterior wedge deformity of the T9 vertebral body with superior and inferior endplate Schmorl's node resulting in 50 percent height loss, likely chronic. IMPRESSION: Left lower lobe airspace consolidation suspicious for pulmonary infiltrate in the appropriate clinical setting. There is a more focal nodular component with air cavitation measuring 2.5 x 3.1 cm. Differential considerations would include superimposed fungal infection as may be seen with aspergillosis versus cavitary lung malignancy. Recommend close follow-up to ensure resolution. No pathologically enlarged thoracic lymph nodes are identified. Electronically signed by: Anastasiia Dhillon MD (05/26/2019 2:42 PM) [id number]
== END | disposition home or self-care (01) ==
LOC: CT 12:51
PROVIDERS: ATTEND Nurse Practitioner Adult Health
DX: J43.2 Centrilobular emphysema (principal); J18.1 Lobar pneumonia, unspecified organism; E04.1 Nontoxic single thyroid nodule; I89.8 Other specified noninfective disorders of lymphatic vessels and lymph nodes
CPT/HCPCS: 71250

== ENCOUNTER → 2019-06-27 | Outpatient (CLI) | payer OTHER ==
--- NOTE | 2019-06-27 14:12 | RAD ---
EXAM: Bilateral lower extremity venous Doppler sonogram. HISTORY: Swelling and pain. TECHNIQUE: Holley scale and color Doppler sonographic evaluation of the bilateral lower extremity veins with spectral waveform analysis was performed. FINDINGS: There is normal color flow, normal compressibility and there are normal spectral waveforms in the common femoral, superficial femoral, popliteal, posterior tibial and greater saphenous veins. There is a fluid collection within the popliteal fossa measuring 4.1 cm in maximum dimension. IMPRESSION: 1. No Doppler evidence of lower extremity deep venous thrombosis. 2. Suspected small Johnston's cyst. Electronically signed by: Tatiana Mendoza MD (06/27/2019 2:09 PM) [place] [id number]
--- NOTE | 2019-06-27 15:12 | RAD ---
CHEST PA LATERAL History: Swelling of the lower extremities, chest pain, VQ scan Comparison: 04/26/2019 CT chest without contrast. Findings: The cardiomediastinal silhouette is normal. Pulmonary vasculature is normal. Linear scarring at the left lower lung field is present. No pleural effusion or pneumothorax is seen. There is no acute bone abnormality. Dextroconvexity thoracic spine noted. IMPRESSION: Left lower lung field linear infiltrate or scarring is significantly decreased compared to the recent CT chest without contrast exam dated 04/26/2019. Continued follow-up to resolution should be considered. Electronically signed by: Rocky Dunaway MD (06/27/2019 3:09 PM) [facility]
--- NOTE | 2019-06-27 16:11 | RAD ---
Examination: LUNG VENT/PERFUSION SCAN(VQ) History: Chest pain, lower rhoda swelling Comparison/Correlation: 06/27/2019 two-view chest x-ray exam Findings: 21.8 mCi xenon-133 gas was utilized for ventilation imaging. Washout of radiotracer is prolonged compatible with COPD. 5.5 mCi technetium 99m MAA was intravenously administered for purposes of perfusion imaging. Segmental perfusion defect definitely identified. No mismatch defect. Impression: Low probability for pulmonary embolism. Electronically signed by: Rocky Dunaway MD (06/27/2019 4:08 PM) [facility]
== END | disposition home or self-care (01) ==
LOC: US 12:50
PROVIDERS: ATTEND Internal Medicine Critical Care Medicine
DX: J98.4 Other disorders of lung (principal); M79.89 Other specified soft tissue disorders; M79.662 Pain in left lower leg
CPT/HCPCS: 71046; 78582; 93970; 96374; A9540; A9558

== ENCOUNTER 2020-10-25 12:22 | Emergency (ER) | payer MEDICARE, OTHER ==
[~2020-10-25] VITALS: Ht 182.9 cm; Wt 81.8 kg
[~2020-10-25 12:22] MED LIST changes: +LISI1TAB20 PO; -LISI1TAB7 PO; +LORA0.5T21 PO; -LORA0.5T96 PO; -RISP4TAB2 PO; +RISP4TAB65 PO
--- NOTE | 2020-10-25 13:33 | PHYS DOC ---
Past History Past Medical History: Diabetes, Hypertension, Schizophrenia, TIA (MARIANNE ASHRAF APRN) Past Surgical History: Other Additional Past Surgical Histo: FX RIGHT LEG (MARIANNE ASHRAF APRN) Alcohol Use: Occasionally Additional Alcohol Information: 2-4 BEERS/WEEKEND Drug Use: None (MARIANNE ASHRAF APRN) Adult General Chief Complaint Chief Complaint: WOUND CHECK HPI HPI Patient is a 65-year-old patient presents emergency department with complaints of being sent here by Dr. Nevarez's office after seeing him for a laceration on his left thigh. Patient reports that Dr. Nevarez contacted the wound care clinic at [facility] and they recommended that he come to the emergency department right away for evaluation. Patient reports that last Wednesday he was walking near his TV stand when a sharp edge cut through his jeans and into his upper left thigh. Patient states that later throughout the week he had been cleaning it with peroxide along with soap and water and decided to take a Low cab to see his Dr. Nevarez. Patient states that Dr. Nevarez took a look at his leg gave updated his tetanus immunization status and sent him here for evaluation under the recommendation of the wound care clinic at [facility]. Patient states that he has a history of diabetes and hypertension but only takes tizanidine and Seroquel for home medications. Patie nt denies falling, loss of sensation down his left thigh. Patient denies other physical illnesses or other physical complaints. (MARIANNE ASHRAF APRN) Review of Systems Review of Systems 14 body systems of review of systems have been reviewed. See HPI for pertinent positives and negative responses, otherwise all other systems are negative, nonpertinent or noncontributory. (MARIANNE ASHRAF APRN) Current Medications Current Medications Patient reports taking 400 mg Seroquel nightly, and an unknown dose of tizanid ine nightly. (MARIANNE ASHRAF APRN) Allergies Allergies Allergies Coded Allergies Type Severity Reaction Last Updated Verified No Known Drug Allergies 05/09/14 No (MARIANNE ASHRAF APRN) Physical Exam Physical Exam Constitutional: Well developed, well nourished, no acute distress, non-toxic appearance. HENT: Normocephalic, atraumatic, bilateral external ears normal, oropharynx moist, no oral exudates, nose normal. Eyes: PERRLA, EOMI, conjunctiva normal, no discharge. Neck: Normal range of motion, no tenderness, supple, no stridor. Cardiovascular:Heart rate regular rhythm, no murmur Lungs & Thorax: Bilateral breath sounds clear to auscultation Abdomen: Bowel sounds normal, soft, no tenderness, no masses, no pulsatile masses. Skin: Warm, dry, no erythema, no rash. Left lateral thigh just inferior to the greater trochanter bony prominence is a 7 cm x 1.2 cm full-thickness laceration into the adipose tissue but does not extend into the muscle tissue or fascia. Just ventral to this laceration in line is a second laceration length 2.5 cm length with no skin gape. Surrounding both lacerations is a 10 cm x 10 cm ecchymotic area, just superior to the iliac crest is a 15 cm x 7 cm ecchymotic area. Patient denies loss of sensation of lower extremity left, patient has full AROM/PROM of left lower extremity, less than 2-second brisk distal cap refill, 2+ dorsalis pedis and posterior tibial pulses, no bony crepitus noted, lacerations are without infectious process, are not draining, have dried blood around the edges, no necrotic tissue appreciated. Back: No tenderness, no CVA tenderness. Extremities: No tenderness, no cyanosis, no clubbing, ROM intact, no edema. Neurologic: Alert and oriented X 3, normal motor function, normal sensory function, no focal deficits noted. Psychologic: Affect normal, judgement normal, mood normal. (MARIANNE ASHRAF APRN) Current Patient Data Vital Signs Vital Signs Date Time Temp Pulse Resp B/P (MAP) Pulse Ox O2 Delivery O2 Flow Rate FiO2 10/25/20 12:45 97.5 123 18 131/97 (108) 98 Room Air Lab Results Laboratory Tests Test 10/25/20 13:49 White Blood Count 4.8 x10^3/uL Red Blood Count 3.61 x10^6/uL Hemoglobin 13.2 g/dL Hematocrit 38.6 % Mean Corpuscular Volume 107 fL Mean Corpuscular Hemoglobin 37 pg Mean Corpuscular Hemoglobin Concent 34 g/dL Red Cell Distribution Width 13.8 % Platelet Count 169 x10^3/uL Neutrophils (%) (Auto) 62 % Lymphocytes (%) (Auto) 28 % Monocytes (%) (Auto) 8 % Eosinophils (%) (Auto) 1 % Basophils (%) (Auto) 1 % Neutrophils # (Auto) 3.0 x10^3uL Lymphocytes # (Auto) 1.4 x10^3/uL Monocytes # (Auto) 0.4 x10^3/uL Eosinophils # (Auto) 0.0 x10^3/uL Basophils # (Auto) 0.0 x10^3/uL Sodium Level 137 mmol/L Potassium Level 2.9 mmol/L Chloride Level 96 mmol/L Carbon Dioxide Level 29 mmol/L Anion Gap 12 Blood Urea Nitrogen 21 mg/dL Creatinine 2.6 mg/dL Estimated GFR (Cockcroft-Gault) 24.9 Glucose Level 109 mg/dL Lactic Acid Level 1.8 mmol/L Calcium Level 9.1 mg/dL Current Medications Medications (Trade) Dose Ordered Sig/Jameson Route PRN Reason Start Time Stop Time Status Last Admin Dose Admin Bacitracin (Bacitracin Topical Pkt) 4 pkt 1X ONCE TP 10/25/20 13:45 10/25/20 13:46 DC 10/25/20 14:29 Cephalexin HCl (Keflex) 500 mg 1X ONCE PO 10/25/20 13:45 10/25/20 13:46 DC 10/25/20 14:30 Folic Acid (Folic Acid) 1 mg 1X ONCE PO 10/25/20 13:45 10/25/20 13:46 DC 10/25/20 14:30 Thiamine HCl (Vitamin B-1) 100 mg 1X ONCE PO 10/25/20 13:45 10/25/20 13:46 DC 10/25/20 14:31 Sodium Chloride 1,000 ml @ 1,000 mls/hr 1X ONCE IV 10/25/20 13:45 10/25/20 14:44 DC 10/25/20 14:29 Potassium Chloride (Klor-Con) 40 meq 1X ONCE PO 10/25/20 14:30 10/25/20 14:32 DC 10/25/20 14:34 Potassium Chloride (Klor-Con) 20 meq STK-MED ONCE PO 10/25/20 14:32 10/25/20 14:32 DC Potassium Chloride (Klor-Con) 40 meq 1X ONCE PO 10/25/20 16:30 10/25/20 16:32 DC 10/25/20 16:46 Potassium Chloride (Klor-Con) 40 meq 1X ONCE PO 10/25/20 16:30 10/25/20 16:32 DC (MARIANNE ASHRAF APRN) EKG EKG [] (MARIANNE ASHRAF APRN) Radiology/Procedures Radiology/Procedures [] (MARIANNE ASHRAF APRN) Heart Score Risk Factors: Risk Factors: DM, Current or recent (<one month) smoker, HTN, HLP, family history of CAD, obesity. Risk Scores: Risk Factors: DM, Current or recent (<one month) smoker, HTN, HLP, family history of CAD, obesity. (MARIANNE ASHRAF APRN) Course & Med Decision Making Course & Med Decision Making Pertinent Labs and Imaging studies reviewed. (See chart for details) 65-year-old patient who was sent here by Dr. Nevarez under the recommendation of [facility] wound care [facility] wound care center for evaluation of a laceration of the left lateral thigh that was suffered 5 days prior to arrival. Dr. Nevarez updated the patient's tetanus immunization status prior to sending him to see us here in the emergency department today. Patient reports a history of difficulty sleeping at night, however patient does have a charted history of diabetes mellitus type 2, and alcoholism. Patient states that he is no longer an alcoholic and only drank 4 beers last Wednesday when this incident occurred. Patient denies smoking cigarettes or illicit drug use. Evaluation of wound did not reveal any infectio us process, patient states she has been cleansing daily with peroxide. Consulted with [facility] wound care clinic, recommended patient no longer use peroxide for daily cleansing, is recommended patient use a chlorhexidine type soap daily and pack open wound with saline soaked gauze. Patient will be prophylactically started on Keflex 500 mg 4 times daily first dose given in the ER today. Patient had a serum potassium of 2.9 and was given 40 mEq potassium chloride p.o. early in his ER visit and then another 40 mEq upon his discharge. Patient also had a creatinine of 2.6 concerning for acute kidney injury, it was recommended to patient that he be admitted to the hospital. Patient refused hospital admission. Risk and benefits of admission v ersus leaving AMA were reviewed with patient. Again urged patient to stay however patient wished to leave AGAINST MEDICAL ADVICE. Is of my opinion that the patient is of sound mind and body, alert and oriented x3, and is able to make his own educated medical decisions. Discussed at length with patient home wound care that was recommended by the wound care center at [facility], patient gave verbal understanding of prescription medications, recommended wound care techniques, patient also gave verbal understanding of strict return to ER concerns and signs and symptoms, patient was discharged home AGAINST MEDICAL ADVICE without incident. Diagnosis well-healing noninfected thigh laceration, low serum potassium, acute kidney injury. Leaving AGAINST MEDICAL ADVICE. (MARIANNE ASHRAF APRN) Course & Med Decision Making I have reviewed the VENTILATOR SPECIALIST's note and plan of care. The patient is AAOx3, exhibits no alcohol or drug intoxication to a point that would impair ability to delineate a choice, and demonstrates all four mccollum elements of capacity to make decisions regarding the medical care offered. - Patient able to Communicate their treatment choice - Patient able to Understand and recall information - Patient able to Appreciate and process probable outcomes of their condition - Patient able to Reason through communication their rationalization about their choice of care options, regardless of whether I as their provider agree with their rationale. Risks and Recommendations: The risks of refusing recommended care that were disclosed and acknowledged by the patient include loss of current lifestyle, permanent mental impairment, and . The recommended medical care being refused has been discussed with the patient and is to stay for continued monitoring, workup, and possible treatment. The patient understands they are welcome to return to the hospital at any time to receive the recommended care or any other care at any time, regardless of their ability to pay for such care. Discharge instructions and antibiotics were provided to the patient. (BETTE HUNG DO) Dragon Disclaimer Dragon Disclaimer This electronic medical record was generated, in whole or in part, using a voice recognition dictation system. (MARIANNE ASHRAF APRN) Departure Departure: Impression: Primary Impression: Acute kidney injury Additional Impressions: Open thigh wound Low serum potassium Left against medical advice Disposition: 07 AMA/ELOPED/LWBS Condition: STABLE Referrals: ADDISON CAMPA MD (PCP) Patient Instructions: Acute Kidney Injury, Delayed Wound Closure, Wound Care, [id number] Additional Instructions: Take prescriptions as directed, clean your left thigh wound once a day after showering or bathing you can use the bacitracin ointment daily. Please take all of the antibiotic as directed, return to the the emergency department for worsening symptoms, signs of infection, or other concerns. your potassioum was low in the ER today, you have been given an oral potassium supplement in the ER, please eat potassium rich foods at home and have it rechecked in about a week at Dr. Jalloh's office. You have an abnormal lab indicating your kidneys are either injured or failing, I have discussed the need for you to be admitted to the hospital which is my recommendation, you have refused my recommendation of hospital admission, therefore you are leaving AGAINST MEDICAL ADVICE, I have urged you to stay for treatment regarding your kidney injury, you have adamantly refused this recommendation. Scripts Cephalexin (KEFLEX) 500 Mg Capsule 500 MG PO QID for SKIN WOUND for 10 Days, #40 CAP Prov: MARIANNE ASHRAF APRN 10/25/20 Bacitracin (Bacitracin) 28.4 Gm Oint...g. 28.4 GM TP DAILY for wound care, #1 MISC 0 Refills Prov: MARIANNE ASHRAF APRN 10/25/20 Problem Qualifiers Additional Impressions: Open thigh wound Encounter type: initial encounter Laterality: left Qualified Codes: S71.102A - Unspecified open wound, left thigh, initial encounter MARIANNE ASHRAF APRN Oct 25, 2020 13:33 BETTE HUNG DO Oct 26, 2020 08:23
[2020-10-25] MEDS ORDERED: THIAMINE 100 MG TABLET. PO ONE (13:45)
[2020-10-25] MEDS ORDERED: FOLIC ACID 1 MG TABLET PO ONE (13:45)
[2020-10-25] MEDS ORDERED: CEPHALEXIN 250 MG CAPSULE PO ONE (13:45)
[2020-10-25] MEDS ORDERED: BACITRACIN ZINC TOPICAL OINT PACKET. TP ONE (13:45)
[2020-10-25] MEDS ORDERED: IV NORMAL SALINE 1,000ML 1,000 ML IV ONE (13:45)
[2020-10-25 14:13] LABS: BASO % 1 % (0-3); EOS % 1 % (0-3); HEMATOCRIT 38.6 % (39.0-53.0); HEMOGLOBIN 13.2 g/dL (13.0-17.5); LYMPH # 1.4 x10^3/uL (1.0-4.8); LYMPH % 28 % (24-48); MEAN CORPUSCULAR HEMOGLOBIN 37 pg (25-35); MEAN CORPUSCULAR HGB CONC 34 g/dL (31-37); MEAN CORPUSCULAR VOLUME 107 fL (79-100); MONO # 0.4 x10^3/uL (0.0-1.1); MONO % 8 % (0-9); NEUT % 62 % (31-73); PLATELET COUNT 169 x10^3/uL (140-400); RED BLOOD COUNT 3.61 x10^6/uL (4.30-5.70); RED CELL DISTRIBUTION WIDTH 13.8 % (11.5-14.5); WHITE BLOOD COUNT 4.8 x10^3/uL (4.0-11.0)
[2020-10-25 14:20] LABS: CALCIUM 9.1 mg/dL (8.5-10.1); CREATININE 2.6 mg/dL (0.7-1.3); GFR 24.9
[2020-10-25 14:26] LABS: POTASSIUM 2.9 mmol/L (3.5-5.1)
[2020-10-25] MEDS ORDERED: POTASSIUM CHLORIDE 20 MEQ TABLET.ER. PO ONE ×4 (14:30→16:30)
[2020-10-25 16:43] VITALS: BP 157/111
[2020-10-25] MEDS ORDERED: CEPH-264 PO (16:50)
[2020-10-25] MEDS ORDERED: BACI28.43 TP (16:50)
== END 2020-10-25 16:59 | disposition home or self-care (01) ==
LOC: ER 12:22
DX: N17.9 Acute kidney failure, unspecified (principal); S71.112A Laceration without foreign body, left thigh, initial encounter; E11.9 Type 2 diabetes mellitus without complications; I10 Essential (primary) hypertension; F20.9 Schizophrenia, unspecified; Z86.73 Personal history of transient ischemic attack (TIA), and cerebral infarction without residual deficits; W22.8XXA Striking against or struck by other objects, initial encounter; Y93.01 Activity, walking, marching and hiking; Y92.89 Other specified places as the place of occurrence of the external cause; Y99.8 Other external cause status
CPT/HCPCS: 36415; 80048; 83605; 85025; 87040; 96360; 96361; 99285; J7030